=== PATIENT | male | born 1965 | race Caucasian/White ===

== ENCOUNTER 2017-07-02 00:37 | Observation (INO) ==
--- NOTE | 2017-07-02 00:54 | Emergency Department Note ---
Disposition Clinical Impression: TIA (transient ischemic attack) Disposition: Admitted As Inpatient Condition: Fair General Adult HPI - General Chief complaint: ED General Medical Stated complaint: Left Leg went numb Time Seen by Provider: 07/02/17 00:51 Source: patient Limitations: no limitations - History of Present Illness Pain Scale: 0 - Related Data Home Medications Medication Instructions Recorded Confirmed BuPROPion XL (24 HR) [Wellbutrin 300 mg PO QAM 04/16/15 07/01/16 Xl] Citalopram [CeleXA] 20 mg PO DAILY 04/16/15 07/01/16 Colchicine [Colcrys] 0.6 mg PO DAILY 04/16/15 07/01/16 Divalproex (24 HR) [Depakote ER 1,500 mg PO HS 04/16/15 07/01/16 (24 HR)] Gabapentin [Neurontin] 300 mg PO TID 04/16/15 07/01/16 Multivitamin/Iron/Folic Acid 1 tab PO DAILY 04/16/15 07/01/16 [Centrum Complete Multivit Tab] Pravastatin Sodium [Pravachol] 40 mg PO DAILY 04/16/15 07/01/16 ALPRAZolam [Xanax 0.5 MG Tablet] 0.5 mg PO TID PRN 07/01/16 07/01/16 Aspirin 81 mg PO DAILY 07/01/16 07/01/16 Carvedilol [Coreg] 25 mg PO BID 07/01/16 07/01/16 Cholecalciferol (Vitamin D3) 2,000 unit PO DAILY 07/01/16 07/01/16 [Vitamin D3] Cyclobenzaprine [Flexeril] 10 mg PO BID PRN 07/01/16 07/01/16 Fluticasone Propionate Nasal 1 spr NS DAILY 07/01/16 07/01/16 [Flonase] Furosemide [Lasix] 20 mg PO DAILY 07/01/16 07/01/16 Gabapentin [Neurontin] 300 mg PO TID 07/01/16 07/01/16 Insulin ASPART [Novolog Flexpen] 4 - 12 unit SQ ACHS 07/01/16 07/01/16 Insulin DETEMIR [Levemir] 35 unit SQ HS 07/01/16 07/01/16 Lisinopril [Zestril] 40 mg PO DAILY 07/01/16 07/01/16 Lurasidone HCl [Latuda] 120 mg PO DAILY 07/01/16 07/01/16 Metformin HCl [Fortamet] 1,000 mg PO BID 07/01/16 07/01/16 Nitroglycerin [Nitrostat] 0.4 mg SL DAILY PRN 07/01/16 07/01/16 Potassium Chloride [Klor-Con 10 meq PO DAILY 07/01/16 07/01/16 Sprinkle] Testosterone Cypionate 200 mg IM Q2W 07/01/16 07/01/16 [Depo-Testosterone] Tramadol HCl [Ultram] 50 mg PO TID PRN 07/01/16 07/01/16 Triamcinolone Acet 0.1% CRM 1 appl TP DAILY PRN 07/01/16 07/01/16 [Kenalog] Previous Rx's Medication Instructions Recorded Albuterol Sulfate [Albuterol 3 - 4 puff IH Q4HR PRN #1 05/23/16 Inhaler] hfa.aer.ad DiphenhydraMINE [Benadryl] 25 mg PO Q6HR PRN #20 capsule 07/19/16 methylPREDNISolone [Medrol] 4 mg PO TAPER #21 tablet 07/19/16 Azithromycin [Zithromax] 1 applic PO DAILY #6 tablet 11/18/16 Meclizine [Antivert] 25 mg PO TID 14 Days tablet 02/04/17 Cephalexin [Keflex] 500 mg PO TID 7 Days capsule 02/19/17 Gentamicin Oint [Garamycin] 1 appl TP QID 10 Days tube 02/19/17 Phenazopyridine HCl [Pyridium] 200 mg PO TIDAC #6 tab 04/11/17 Sulfamethoxazole/Trimeth DS 1 each PO BID #14 tablet 04/11/17 [Bactrim DS] Allergies Allergy/AdvReac Type Severity Reaction Status Date / Time influenza A (H1N1) virus Allergy Unknown Pt has Verified 07/02/17 00:39 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 Allergy Difficulty Verified 07/02/17 00:39 Breathing msg Allergy Difficulty Uncoded 07/02/17 00:39 Swallowing Past Medical History - Past Medical History Medical history: Reports: diabetes, hypertension, other Surgical history: Reports: orthopedic, other Psychiatric history: Reports: anxiety, bipolar, depression, schizophrenia - Social History Smoking Status: Never smoker Smokeless Tobacco Status: No Alcohol use: Reports: none Drug use: Reports: none Physical Exam - General Limitations: no limitations General appearance: alert Course Vital Signs Temperature 97.4 F L 07/02/17 00:39 Pulse Rate 67 07/02/17 00:39 Respiratory Rate 18 07/02/17 00:39 Blood Pressure 173/95 07/02/17 00:39 O2 Sat by Pulse Oximetry 97 07/02/17 00:39 Temperature 97.5 F L 07/02/17 03:42 Pulse Rate 59 07/02/17 03:42 Respiratory Rate 20 07/02/17 03:42 Blood Pressure 174/94 07/02/17 03:42 O2 Sat by Pulse Oximetry 96 07/02/17 03:03 Oxygen Delivery Oxygen Delivery Room Air Medical Decision Making - Lab Data Result diagrams: 07/02/17 03:41 07/02/17 00:57 Lab Results 07/02/17 07/02/17 07/02/17 Range/Units 00:57 00:57 00:57 WBC 11.9 H (4.3-11.1) K/mcL RBC 5.42 (4.19-5.50) M/mcL Hgb 14.8 (12.9-16.9) g/dL Hct 46.5 (37.5-50.1) % MCV 85.8 (83.0-100.0) fL MCH 27.3 L (28.0-33.3) pg MCHC 31.8 (31.6-35.5) g/dL RDW 14.8 H (11.5-14.5) % Plt Count 249 (140-400) K/mcL MPV 11.3 (9.4-12.4) fL Immature Gran % 0.8 (0-4) % Seg Neutrophils % 53.7 % Lymphocytes % 31.6 % Monocytes % 9.3 % Eosinophils % 3.7 % Basophils % 0.9 % Neutrophils # 6.4 (1.6-8.9) K/mcL Lymphocytes # 3.8 (0.6-4.6) K/mcL Monocytes # 1.1 (0.0-1.3) K/mcL Eosinophils # 0.4 (0.0-0.6) K/mcL Basophils # 0.1 (0.0-0.2) K/mcL PT 10.9 (9.4-12.1) Seconds INR 1.0 APTT 31.5 (26.0-36.0) Seconds Sodium 139 (136-145) mEq/L Potassium 4.2 (3.5-4.5) mEq/L Chloride 106 (98-109) mEq/L Carbon Dioxide 22 (19-29) mEq/L BUN 19 (8-26) mg/dL Creatinine 1.25 (0.72-1.25) mg/dL Est GFR ( Amer) > 60 (> 60) Est GFR (Non-Af Amer) > 60 (> 60) BUN/Creatinine Ratio 15 (6-26) Glucose 80 (70-99) mg/dL Calculated Osmolality 289 (280-300) Calcium 8.9 (8.6-10.8) mg/dL Troponin I (0-0.03) ng/mL 07/02/17 Range/Units 00:57 WBC (4.3-11.1) K/mcL RBC (4.19-5.50) M/mcL Hgb (12.9-16.9) g/dL Hct (37.5-50.1) % MCV (83.0-100.0) fL MCH (28.0-33.3) pg MCHC (31.6-35.5) g/dL RDW (11.5-14.5) % Plt Count (140-400) K/mcL MPV (9.4-12.4) fL Immature Gran % (0-4) % Seg Neutrophils % % Lymphocytes % % Monocytes % % Eosinophils % % Basophils % % Neutrophils # (1.6-8.9) K/mcL Lymphocytes # (0.6-4.6) K/mcL Monocytes # (0.0-1.3) K/mcL Eosinophils # (0.0-0.6) K/mcL Basophils # (0.0-0.2) K/mcL PT (9.4-12.1) Seconds INR APTT (26.0-36.0) Seconds Sodium (136-145) mEq/L Potassium (3.5-4.5) mEq/L Chloride (98-109) mEq/L Carbon Dioxide (19-29) mEq/L BUN (8-26) mg/dL Creatinine (0.72-1.25) mg/dL Est GFR ( Amer) (> 60) Est GFR (Non-Af Amer) (> 60) BUN/Creatinine Ratio (6-26) Glucose (70-99) mg/dL Calculated Osmolality (280-300) Calcium (8.6-10.8) mg/dL Troponin I 0.01 (0-0.03) ng/mL Attestation Statement - Attestation Attestation: I examined this patient and my medical decision-making was reviewed with the Resident Physician. I agree with the documented findings, disposition and treatment plan as described except to the extent set forth below. [id number] time provided Patient states his symptoms started one hour ago. 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 He also states he had some tingling of his tongue and his significant other thought his speech was slightly slurred. He appears in no acute distress at the time of my exam
[2017-07-02 01:16] LABS: Basophils # 0.1 K/mcL (0.0-0.2); Basophils % 0.9 %; Eosinophils # 0.4 K/mcL (0.0-0.6); Eosinophils % 3.7 %; Hematocrit 46.5 % (37.5-50.1); Hemoglobin 14.8 g/dL (12.9-16.9); Immature Granulocytes % 0.8 % (0-4); Lymphocytes # 3.8 K/mcL (0.6-4.6); Lymphocytes % 31.6 %; Mean Corpuscular HGB Conc 31.8 g/dL (31.6-35.5); Mean Corpuscular Hemoglobin 27.3 pg (28.0-33.3); Mean Corpuscular Volume 85.8 fL (83.0-100.0); Mean Platelet Volume 11.3 fL (9.4-12.4); Monocytes # 1.1 K/mcL (0.0-1.3); Monocytes % 9.3 %; Neutrophils # 6.4 K/mcL (1.6-8.9); Platelet Count 249 K/mcL (140-400); Red Blood Count 5.42 M/mcL (4.19-5.50); Red Cell Distribution Width 14.8 % (11.5-14.5); Segmented Neutrophils % 53.7 %
[2017-07-02 01:25] LABS: Prothrombin Time 10.9 Seconds (9.4-12.1)
--- NOTE | 2017-07-02 01:25 | Emergency Department Note ---
Disposition Clinical Impression: TIA (transient ischemic attack) Qualifiers: Transient cerebral ischemia type: unspecified Qualified Code(s): G45.9 - Transient cerebral ischemic attack, unspecified Disposition: Admitted As Inpatient Condition: Fair Referrals: Crystal Noonan CNP [Primary Care Provider] - Forms: ED Satisfaction Letter, Work/School Release Time of Disposition: 02:15 Neuro HPI - General Chief Complaint: ED General Medical Stated Complaint: Left Leg went numb Time Seen by Provider: 07/02/17 00:51 Source: patient Limitations: no limitations Nursing Notes Reviewed: Yes Vital Signs Reviewed: Yes - History of Present Illness HPI Narrative: Patient is a 52-year-old male who presents to [facility] ED with a chief complaint of left lower extremity numbness. Stated his symptoms started approximately around midnight approximately 1 hour prior to arrival. 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 The numbness is purely below the left knee. also states she noted some slurred speech and patient states he also had some tingling of his tongue. States his blood sugar was around 90 so he ate [address] in. Upon repeat, his glucose was also 90 here. Onset of Symptoms Date: 07/02/17 Onset of Symptoms Time: 00:00 Symptom Onset Unknown: No Timing confirmed by: spouse Location: speech, left leg History of same: No Severity: moderate Quality: numbness Symptoms Improving: Yes Improves with: none Worsens with: none Context: sudden onset On Anticoagulants: No Associated symptoms: Denies: chest pain, cough, fever/chills, shortness of breath, weakness Treatments Prior to Arrival: none - Related Data Home Medications: Home Medications Medication Instructions Recorded Confirmed BuPROPion XL (24 HR) [Wellbutrin 300 mg PO QAM 04/16/15 07/01/16 Xl] Citalopram [CeleXA] 20 mg PO DAILY 04/16/15 07/01/16 Colchicine [Colcrys] 0.6 mg PO DAILY 04/16/15 07/01/16 Divalproex (24 HR) [Depakote ER 1,500 mg PO HS 04/16/15 07/01/16 (24 HR)] Gabapentin [Neurontin] 300 mg PO TID 04/16/15 07/01/16 Multivitamin/Iron/Folic Acid 1 tab PO DAILY 04/16/15 07/01/16 [Centrum Complete Multivit Tab] Pravastatin Sodium [Pravachol] 40 mg PO DAILY 04/16/15 07/01/16 ALPRAZolam [Xanax 0.5 MG Tablet] 0.5 mg PO TID PRN 07/01/16 07/01/16 Aspirin 81 mg PO DAILY 07/01/16 07/01/16 Carvedilol [Coreg] 25 mg PO BID 07/01/16 07/01/16 Cholecalciferol (Vitamin D3) 2,000 unit PO DAILY 07/01/16 07/01/16 [Vitamin D3] Cyclobenzaprine [Flexeril] 10 mg PO BID PRN 07/01/16 07/01/16 Fluticasone Propionate Nasal 1 spr NS DAILY 07/01/16 07/01/16 [Flonase] Furosemide [Lasix] 20 mg PO DAILY 07/01/16 07/01/16 Gabapentin [Neurontin] 300 mg PO TID 07/01/16 07/01/16 Insulin ASPART [Novolog Flexpen] 4 - 12 unit SQ ACHS 07/01/16 07/01/16 Insulin DETEMIR [Levemir] 35 unit SQ HS 07/01/16 07/01/16 Lisinopril [Zestril] 40 mg PO DAILY 07/01/16 07/01/16 Lurasidone HCl [Latuda] 120 mg PO DAILY 07/01/16 07/01/16 Metformin HCl [Fortamet] 1,000 mg PO BID 07/01/16 07/01/16 Nitroglycerin [Nitrostat] 0.4 mg SL DAILY PRN 07/01/16 07/01/16 Potassium Chloride [Klor-Con 10 meq PO DAILY 07/01/16 07/01/16 Sprinkle] Testosterone Cypionate 200 mg IM Q2W 07/01/16 07/01/16 [Depo-Testosterone] Tramadol HCl [Ultram] 50 mg PO TID PRN 07/01/16 07/01/16 Triamcinolone Acet 0.1% CRM 1 appl TP DAILY PRN 07/01/16 07/01/16 [Kenalog] Previous Rx's Medication Instructions Recorded Albuterol Sulfate [Albuterol 3 - 4 puff IH Q4HR PRN #1 05/23/16 Inhaler] hfa.aer.ad DiphenhydraMINE [Benadryl] 25 mg PO Q6HR PRN #20 capsule 07/19/16 methylPREDNISolone [Medrol] 4 mg PO TAPER #21 tablet 07/19/16 Azithromycin [Zithromax] 1 applic PO DAILY #6 tablet 11/18/16 Meclizine [Antivert] 25 mg PO TID 14 Days tablet 02/04/17 Cephalexin [Keflex] 500 mg PO TID 7 Days capsule 02/19/17 Gentamicin Oint [Garamycin] 1 appl TP QID 10 Days tube 02/19/17 Phenazopyridine HCl [Pyridium] 200 mg PO TIDAC #6 tab 04/11/17 Sulfamethoxazole/Trimeth DS 1 each PO BID #14 tablet 04/11/17 [Bactrim DS] Allergies/Adverse Reactions: Allergies Allergy/AdvReac Type Severity Reaction Status Date / Time influenza A (H1N1) virus Allergy Unknown Pt has Verified 07/02/17 00:39 vaccine m-[place]-split 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 Past Medical History - Past Medical History Attestation: Yes The following information was validated with the patient. Source: patient Medical history: Reports: diabetes, hypertension, other Surgical history: Reports: orthopedic, other Psychiatric history: Reports: anxiety, bipolar, depression, schizophrenia - Social History Smoking Status: Never smoker Smokeless Tobacco Status: No Alcohol use: Reports: none Drug use: Reports: none Physical Exam CONSTITUTIONAL: Alert and oriented X3, well-nourished, well appearing, in no apparent distress HEAD: Normocephalic; atraumatic. EYES: EOMI, no scleral icterus. NOSE: The nose is normal in appearance without rhinorrhea RESP: Normal chest excursion with respiration; breath sounds clear and equal bilaterally; no wheezes, rhonchi, or rales CARD: Regular rhythm, without murmurs, rub or gallop ABD: Non-distended; non-tender, soft,without rigidity, rebound or guarding SKIN: Normal for age and race; warm and dry; no apparent lesions NEUROLOGICAL: Patient is alert and oriented times three. Cranial nerves III- XII are intact. motor functions are intact. Strength is 5/5 for flexion and extension in all 4 extremities. Patellar DTRS are equal and intact. Finger to nose testing is equal and normal bilaterally. Decreased sensation below the left lower extremity knee - General Limitations: no limitations General appearance: alert Course Course Narrative: Patient seen and examined. Acute neuro symptoms that started an hour ago including left lower extremity numbness, tingling of the tongue and slurred speech. Stroke alert was activated. NIH score [address] of the head was negative for any acute abnormalities. I discussed with [facility] neurologists Dr. Dorman who states patient can come in for TIA workup. - Reevaluation(s) Reevaluation #1: Lab work appears unremarkable. We will admit for TIA workup. Discussed with hospitalist Dr. Vargas who has accepted patient for admission. Time: 02:15 Vital Signs Temperature 97.4 F L 07/02/17 00:39 Pulse Rate 67 07/02/17 00:39 Respiratory Rate 18 07/02/17 00:39 Blood Pressure 173/95 07/02/17 00:39 O2 Sat by Pulse Oximetry 97 07/02/17 00:39 Temperature 97.4 F L 07/02/17 00:39 Pulse Rate 60 07/02/17 01:52 Respiratory Rate 20 07/02/17 01:52 Blood Pressure 160/84 07/02/17 01:52 O2 Sat by Pulse Oximetry 92 07/02/17 01:52 Oxygen Delivery Oxygen Delivery Room Air Neuro Symptoms/Deficit - Medical Records Medical records reviewed: Yes I reviewed the patient's medical records. - Lab Data Lab results reviewed: Yes I reviewed the patient's lab results. Result diagrams: 07/02/17 00:57 07/02/17 00:57 Lab Results 07/02/17 07/02/17 07/02/17 Range/Units 00:57 00:57 00:57 WBC 11.9 H (4.3-11.1) K/mcL RBC 5.42 (4.19-5.50) M/mcL Hgb 14.8 (12.9-16.9) g/dL Hct 46.5 (37.5-50.1) % MCV 85.8 (83.0-100.0) fL MCH 27.3 L (28.0-33.3) pg MCHC 31.8 (31.6-35.5) g/dL RDW 14.8 H (11.5-14.5) % Plt Count 249 (140-400) K/mcL MPV 11.3 (9.4-12.4) fL Immature Gran % 0.8 (0-4) % Seg Neutrophils % 53.7 % Lymphocytes % 31.6 % Monocytes % 9.3 % Eosinophils % 3.7 % Basophils % 0.9 % Neutrophils # 6.4 (1.6-8.9) K/mcL Lymphocytes # 3.8 (0.6-4.6) K/mcL Monocytes # 1.1 (0.0-1.3) K/mcL Eosinophils # 0.4 (0.0-0.6) K/mcL Basophils # 0.1 (0.0-0.2) K/mcL PT 10.9 (9.4-12.1) Seconds INR 1.0 APTT 31.5 (26.0-36.0) Seconds Sodium 139 (136-145) mEq/L Potassium 4.2 (3.5-4.5) mEq/L Chloride 106 (98-109) mEq/L Carbon Dioxide 22 (19-29) mEq/L BUN 19 (8-26) mg/dL Creatinine 1.25 (0.72-1.25) mg/dL Est GFR ( Amer) > 60 (> 60) Est GFR (Non-Af Amer) > 60 (> 60) BUN/Creatinine Ratio 15 (6-26) Glucose 80 (70-99) mg/dL Calculated Osmolality 289 (280-300) Calcium 8.9 (8.6-10.8) mg/dL Troponin I (0-0.03) ng/mL 07/02/17 Range/Units 00:57 WBC (4.3-11.1) K/mcL RBC (4.19-5.50) M/mcL Hgb (12.9-16.9) g/dL Hct (37.5-50.1) % MCV (83.0-100.0) fL MCH (28.0-33.3) pg MCHC (31.6-35.5) g/dL RDW (11.5-14.5) % Plt Count (140-400) K/mcL MPV (9.4-12.4) fL Immature Gran % (0-4) % Seg Neutrophils % % Lymphocytes % % Monocytes % % Eosinophils % % Basophils % % Neutrophils # (1.6-8.9) K/mcL Lymphocytes # (0.6-4.6) K/mcL Monocytes # (0.0-1.3) K/mcL Eosinophils # (0.0-0.6) K/mcL Basophils # (0.0-0.2) K/mcL PT (9.4-12.1) Seconds INR APTT (26.0-36.0) Seconds Sodium (136-145) mEq/L Potassium (3.5-4.5) mEq/L Chloride (98-109) mEq/L Carbon Dioxide (19-29) mEq/L BUN (8-26) mg/dL Creatinine (0.72-1.25) mg/dL Est GFR ( Amer) (> 60) Est GFR (Non-Af Amer) (> 60) BUN/Creatinine Ratio (6-26) Glucose (70-99) mg/dL Calculated Osmolality (280-300) Calcium (8.6-10.8) mg/dL Troponin I 0.01 (0-0.03) ng/mL - Radiology Data Radiology results reviewed: Yes I reviewed the patient's radiology results. Head CT 07/02/17 01:10 IMPRESSION: 1. No acute intracranial abnormality. 2. Cerebral and cerebellar parenchymal volume loss with chronic microvascular white matter ischemic disease. These results were discussed with Dr. pinky Jacob and at 0122 hours on 07/02/2017. D/ / Romeo Mcintosh MD / Romeo Mcintosh MD Interpreting Provider: Romeo Mcintosh MD - EKG Data EKG attestation: Yes I reviewed and interpreted this EKG. EKG results narrative: EKG done at 145 shows normal sinus rhythm with a rate of 67 beats per minute. No acute ST elevation or depression. Normal axis. Unchanged from prior EKG done 03/20/2017. NIH Stroke Scale - Level of Consciousness LOC: Alert - LOC Questions LOC Questions: Answers both correctly - LOC Commands LOC Commands: Performs both correctly - Best Gaze Best Gaze: Normal - Visual Visual: No visual loss - Facial Palsy Facial Palsy: Normal - Motor Arms Motor Arm-Left: No drift for 10 seconds Motor Arm-Right: No drift for 10 seconds - Motor Legs Motor Leg-Left: No drift for 5 seconds Motor Leg-Right: No drift for 5 seconds - Limb Ataxia Limb Ataxia: Absent of affected limb too weak to perform exam - Sensory Sensory: Mild to moderate loss, "not as sharp" - Best Language Best Language: No aphasia - Dysarthria Dysarthria: Normal - Extinction and Inattention Extinction and Inattention: Normal - NIHSS Total Score NIHSS Total Score: 1 TPA Checklist - LKW: 3-4.5 hrs Add. Warnings/Precautions Patient/family understanding: The patient/family members have been counseled and understood the risk, benefit , and alternatives of treatment.
[2017-07-02 01:26] LABS: BUN/Creatinine Ratio 15 (6-26); Blood Urea Nitrogen 19 mg/dL (8-26); Calcium 8.9 mg/dL (8.6-10.8); Carbon Dioxide 22 mEq/L (19-29); Chloride 106 mEq/L (98-109); Glucose 80 mg/dL (70-99); Osmolality,Calculated 289 (280-300); Potassium 4.2 mEq/L (3.5-4.5); Sodium 139 mEq/L (136-145); eGFR For African Americans > 60 (> 60); eGFR For Non-African Americans > 60 (> 60)
[2017-07-02 01:27] LABS: Activated Partial Thrombo Time 31.5 Seconds (26.0-36.0)
--- NOTE | 2017-07-02 03:17 | Internal Med History&Physical ---
Date of Encounter: 07/02/17 Time of Encounter: 03:00 Assessment and Plan (1) Left leg paresthesias Current visit: Yes Status: Acute -No focal neurological deficits on exam. -CT of the head showed no acute findings. -Will order MRI/MRA of brain/neck to complete workup. (2) Diabetes mellitus type 2 with complications Current visit: No Status: Chronic -Controlled; continue home medications. Qualifiers: Diabetes mellitus longterm insulin use: with middle or intermediate school principal use Qualified Code( s): E11.8 - Type 2 diabetes mellitus with unspecified complications; Z79.4 - petroleum terminal plant operator (current) use of insulin; Z79.4 - petroleum terminal plant operator (current) use of insulin; Z79.4 - correction (current) use of insulin; Z79.4 - correction (current) use of insulin (3) Hypertension Current visit: No Status: Acute -Controlled; continue home medications. Qualifiers: Hypertension type: essential hypertension Qualified Code(s): I10 - Essential (primary) hypertension (4) Hyperlipidemia Current visit: Yes Status: Acute -Continue statin. Qualifiers: Hyperlipidemia type: unspecified Qualified Code(s): E78.5 - Hyperlipidemia , unspecified (5) Bipolar disorder Current visit: No Status: Chronic -Continue home medications. Qualifiers: Most recent bipolar episode type: most recent episode unspecified type Qualified Code(s): F31.70 - Bipolar disorder, currently in remission, most recent episode unspecified (6) DVT prophylaxis Current visit: Yes Status: Acute -Subcutaneous heparin. 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 Patient reports while watching TV the evening of admission, he suddenly experienced left lower extremity altered sensation. In addition, patient also reports altered sensation in the tip of his tongue/lips and significant other reported slurred speech which have all resolved. Patient was concerned and asked significant other to bring him into the ER for further evaluation. In the ER, CT of the head showed no acute abnormalities. Patient will be admitted to medical floor for observation for monitoring and to rule out TIA. Past Med Surg Social Fam HX - Past Medical History Medical history: diabetes, hypertension, other Psychiatric history: anxiety, bipolar, depression, schizophrenia - Past Surgical History Surgical History: orthopedic, other - Social History Smoking Status: Never smoker Smokeless Tobacco Status: No Alcohol use: none Drug use: none - Family History Mother Hx Family Endocrine Disorder: Yes (diabetes mellitus) Internal Medicine - H&P: Meds BuPROPion XL (24 HR) [Wellbutrin Xl] 300 mg PO QAM 04/16/15 [History] Citalopram [CeleXA] 20 mg PO DAILY 04/16/15 [History] Colchicine [Colcrys] 0.6 mg PO DAILY 04/16/15 [History] Divalproex (24 HR) [Depakote ER (24 HR)] 1,500 mg PO HS 04/16/15 [History] Gabapentin [Neurontin] 300 mg PO TID 04/16/15 [History] Multivitamin/Iron/Folic Acid [Centrum Complete Multivit Tab] 1 tab PO DAILY [History] Pravastatin Sodium [Pravachol] 40 mg PO DAILY 04/16/15 [History] Albuterol Sulfate [Albuterol Inhaler] 3 - 4 puff IH Q4HR PRN #1 hfa.aer.[id number] 05/23 [Rx] ALPRAZolam [Xanax 0.5 MG Tablet] 0.5 mg PO TID PRN 07/01/16 [History] Aspirin 81 mg PO DAILY 07/01/16 [History] Carvedilol [Coreg] 25 mg PO BID 07/01/16 [History] Cholecalciferol (Vitamin D3) [Vitamin D3] 2,000 unit PO DAILY 07/01/16 [History] Cyclobenzaprine [Flexeril] 10 mg PO BID PRN 07/01/16 [History] Fluticasone Propionate Nasal [Flonase] 1 spr NS DAILY 07/01/16 [History] Furosemide [Lasix] 20 mg PO DAILY 07/01/16 [History] Gabapentin [Neurontin] 300 mg PO TID 07/01/16 [History] Insulin ASPART [Novolog Flexpen] 4 - 12 unit SQ ACHS 07/01/16 [History] Insulin DETEMIR [Levemir] 35 unit SQ HS 07/01/16 [History] Lisinopril [Zestril] 40 mg PO DAILY 07/01/16 [History] Lurasidone HCl [Latuda] 120 mg PO DAILY 07/01/16 [History] Metformin HCl [Fortamet] 1,000 mg PO BID 07/01/16 [History] Nitroglycerin [Nitrostat] 0.4 mg SL DAILY PRN 07/01/16 [History] Potassium Chloride [Klor-Con Sprinkle] 10 meq PO DAILY 07/01/16 [History] Testosterone Cypionate [Depo-Testosterone] 200 mg IM Q2W 07/01/16 [History] Tramadol HCl [Ultram] 50 mg PO TID PRN 07/01/16 [History] Triamcinolone Acet 0.1% CRM [Kenalog] 1 appl TP DAILY PRN 07/01/16 [History] DiphenhydraMINE [Benadryl] 25 mg PO Q6HR PRN #20 capsule 07/19/16 [Rx] methylPREDNISolone [Medrol] 4 mg PO TAPER #21 tablet 07/19/16 [Rx] Azithromycin [Zithromax] 1 applic PO DAILY #6 tablet 11/18/16 [Rx] Meclizine [Antivert] 25 mg PO TID 14 Days tablet 02/04/17 [Rx] Cephalexin [Keflex] 500 mg PO TID 7 Days capsule 02/19/17 [Rx] Gentamicin Oint [Garamycin] 1 appl TP QID 10 Days tube 02/19/17 [Rx] Phenazopyridine HCl [Pyridium] 200 mg PO TIDAC #6 tab 04/11/17 [Rx] Sulfamethoxazole/Trimeth DS [Bactrim DS] 1 each PO BID #14 tablet 04/11/17 [Rx] 3 Allergy/AdvReac Type Severity Reaction Status Date / Time influenza A (H1N1) virus Allergy Unknown Pt has Verified 07/02/17 00:39 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 - Constitutional Vitals: Temp Pulse Resp BP Pulse Ox 97.5 F L 59 20 174/94 96 07/02/17 03:03 07/02/17 03:03 07/02/17 03:03 07/02/17 03:03 07/02/17 03:03 General appearance: Present: A&O X 3 - Head Head exam: Present: normocephalic - Eye Eye exam: Present: EOMI, normal appearance, PERRL. Absent: nystagmus - ENT ENT exam: Present: mucous membranes moist - Respiratory Respiratory exam: Present: CTAB. Absent: accessory muscle use, rales, rhonchi, wheezes - Cardiovascular Cardiovascular exam: Present: RRR, +S1, +S2. Absent: diastolic murmur, gallop, rubs, systolic murmur - GI/Abdominal GI/Abdominal exam: Present: normal bowel sounds, soft, no peritoneal signs. Absent: distended, tenderness - Neurological Exam Neurological exam: Present: alert, CN II-XII intact, normal gait, oriented X3, strengths equal and symetr throughout. Absent: motor sensory deficit, no focal deficits, facial droop, speech deficit - Psychiatric Psychiatric exam: Present: normal mood - Skin Skin exam: Present: warm Internal Med - H&P Results - Labs CBC & Chem 7: 07/02/17 00:57 07/02/17 00:57
[2017-07-02] MEDS ORDERED: Naloxone 0.4 MG/ML INJ IVP PRN (03:23)
[2017-07-02 04:13] LABS: Basophils # 0.1 K/mcL (0.0-0.2); Basophils % 0.6 %; Eosinophils # 0.5 K/mcL (0.0-0.6); Eosinophils % 4.1 %; Hematocrit 43.4 % (37.5-50.1); Hemoglobin 13.6 g/dL (12.9-16.9); Immature Granulocytes % 0.9 % (0-4); Lymphocytes # 3.3 K/mcL (0.6-4.6); Lymphocytes % 29.4 %; Mean Corpuscular HGB Conc 31.3 g/dL (31.6-35.5); Mean Corpuscular Hemoglobin 26.9 pg (28.0-33.3); Mean Corpuscular Volume 85.9 fL (83.0-100.0); Mean Platelet Volume 11.2 fL (9.4-12.4); Monocytes # 1.1 K/mcL (0.0-1.3); Monocytes % 9.5 %; Neutrophils # 6.2 K/mcL (1.6-8.9); Platelet Count 249 K/mcL (140-400); Red Blood Count 5.05 M/mcL (4.19-5.50); Red Cell Distribution Width 14.9 % (11.5-14.5); Segmented Neutrophils % 55.5 %
[2017-07-02 04:39] LABS: BUN/Creatinine Ratio 14 (6-26); Blood Urea Nitrogen 16 mg/dL (8-26); Calcium 9.1 mg/dL (8.6-10.8); Carbon Dioxide 26 mEq/L (19-29); Chloride 105 mEq/L (98-109); Chol/HDL Ratio 3.5 (0-4.9); Cholesterol 139 mg/dL (< 200); Glucose 52 mg/dL (70-99); HDL Cholesterol 40 mg/dL (40-59); LDL Cholesterol,Calculated 81 mg/dL (0-99); Osmolality,Calculated 285 (280-300); Potassium 3.9 mEq/L (3.5-4.5); Sodium 138 mEq/L (136-145); Triglycerides 89 mg/dL (< 150); eGFR For African Americans > 60 (> 60); eGFR For Non-African Americans > 60 (> 60)
[2017-07-02] MEDS ORDERED: Triamcinolone Acet 0.1% CRM 1 APPL GRAM TP PRN (12:20)
[2017-07-02] MEDS ORDERED: [UNRECOGNIZED DRUG - OTHER] PO PRN (12:20)
[2017-07-02] MEDS ORDERED: ACETAMINOPHEN PO PRN (12:20)
[2017-07-02] MEDS ORDERED: TRAMADOL HCL PO PRN (12:20)
[2017-07-02] MEDS ORDERED: NON-FORMULARY MEDICATION 1 EACH EACH (Testosterone Cypionate [Depo-Testosterone] 200 MG) IM SCH (12:30)
[2017-07-02] MEDS ORDERED: BuPROPion XL (24 HR) 150 MG TABLET PO SCH (12:30)
[2017-07-02] MEDS ORDERED: Aspirin 81 MG TAB.CHEW PO SCH (12:30)
[2017-07-02] MEDS ORDERED: Cholecalciferol (D-3) 1,000 UNIT TABLET PO SCH (12:30)
--- NOTE | 2017-07-02 13:38 | Discharge Summary ---
Date of Encounter: 07/02/17 Time of Encounter: 08:25 - Discharge Diagnosis (1) Left leg paresthesias Priority: Primary Status: Acute Comments: She reports normal, baseline paresthesias to bilateral lower extremities. He reports that last night while he was watching TV, his left leg became worse than normal. He also reported altered sensation to the tip of his tongue and to his lips, at bedside reports that pt had slurred speech. All symptoms resolved by the time he reached the ER. During exam this a.m., he is neurologically intact with no focal deficits. He does report remaining altered sensation to RLE with light touch, states that it has all resolved to face and right arm. Head CT was negative for any acute intracranial abnormality, there was noted cerebral and cerebellar volume loss with chronic microvascular white matter ischemic disease. MRA of head and neck and MRI of the brain were unremarkable, mild small vessel ischemic changes bilaterally with no acute process, mass or hemorrhage noted. Unclear etiology of left leg paresthesia. Patient with chronic neuropathy from uncontrolled diabetes and [employer] Gregory as a child. Could be an exacerbation of neuropathy versus spinal etiology. Patient states that he and his built a set of stairs yesterday, he was bending over for long periods of time as well as lifting heavy objects repeatedly throughout the day. Patient should continue his normal home medications and follow up with primary care if symptoms do not improve. Patient may need MRI of lumbar spine. (2) Diabetes mellitus type 2 with complications Priority: Secondary Status: Chronic Comments: A1c was 5.5% in May,. Well controlled. Continue home medications. Qualifiers: Diabetes mellitus terminal manager insulin use: with detention use Qualified Code( s): E11.8 - Type 2 diabetes mellitus with unspecified complications; Z79.4 - director long term care (current) use of insulin; Z79.4 - director long term care (current) use of insulin; Z79.4 - nursing home (current) use of insulin; Z79.4 - nursing home (current) use of insulin (3) Bipolar disorder Priority: Secondary Status: Chronic Comments: Continue home medications. Qualifiers: Most recent bipolar episode type: most recent episode unspecified type Qualified Code(s): F31.70 - Bipolar disorder, currently in remission, most recent episode unspecified (4) Hypertension Priority: Secondary Status: Chronic Comments: Pt had episode of HTN while inpatient, however, his home medications were not continued. Pt received dose of Hydralazine IV and will continue home medications. Qualifiers: Hypertension type: essential hypertension Qualified Code(s): I10 - Essential (primary) hypertension (5) Hyperlipidemia Priority: Secondary Status: Chronic Comments: Continue statin. Discussed discontinuing with PCP. Qualifiers: Hyperlipidemia type: unspecified Qualified Code(s): E78.5 - Hyperlipidemia , unspecified (6) DVT prophylaxis Priority: Primary Status: Acute Comments: Heparin SQ. PT same day admission. - Discharge Medications Home Medications: BuPROPion XL (24 HR) [Wellbutrin Xl] 300 mg PO QAM 04/16/15 [History] Citalopram [CeleXA] 20 mg PO DAILY 04/16/15 [History] Divalproex (24 HR) [Depakote ER (24 HR)] 1,500 mg PO HS 04/16/15 [History] Gabapentin [Neurontin] 300 mg PO TID 04/16/15 [History] Multivitamin/Iron/Folic Acid [Centrum Complete Multivit Tab] 1 tab PO DAILY [History] Pravastatin Sodium [Pravachol] 40 mg PO DAILY 04/16/15 [History] ALPRAZolam [Xanax 0.5 MG Tablet] 0.5 mg PO TID PRN 07/01/16 [History] Aspirin 81 mg PO DAILY 07/01/16 [History] Carvedilol [Coreg] 12.5 mg PO BID 07/01/16 [History] Cholecalciferol (Vitamin D3) [Vitamin D3] 2,000 unit PO DAILY 07/01/16 [History] Fluticasone Propionate Nasal [Flonase] 50 mcg NS DAILY 07/01/16 [History] Furosemide [Lasix] 20 mg PO DAILY 07/01/16 [History] Insulin ASPART [Novolog Flexpen] 4 - 12 unit SQ ACHS 07/01/16 [History] Insulin DETEMIR [Levemir] 34 unit SQ BID 07/01/16 [History] Lisinopril [Zestril] 40 mg PO DAILY 07/01/16 [History] Lurasidone HCl [Latuda] 120 mg PO DAILY 07/01/16 [History] Metformin HCl [Fortamet] 1,000 mg PO BID 07/01/16 [History] Nitroglycerin [Nitrostat] 0.4 mg SL DAILY PRN 07/01/16 [History] Potassium Chloride [Klor-Con Sprinkle] 10 meq PO DAILY 07/01/16 [History] Testosterone Cypionate [Depo-Testosterone] 200 mg IM Q2W 07/01/16 [History] Triamcinolone Acet 0.1% CRM [Kenalog] 1 appl TP DAILY PRN 07/01/16 [History] Albuterol Sulfate [Albuterol Inhaler] 1 - 2 puff IH Q4HR PRN 07/02/17 [History] Allopurinol [Zyloprim 100 MG] 200 mg PO DAILY 07/02/17 [History] Tramadol HCl/Acetaminophen [Ultracet Tablet] 1 tab PO Q6H PRN 07/02/17 [History] Allergies/Adverse Reactions: 3 Allergy/AdvReac Type Severity Reaction Status Date / Time influenza A (H1N1) virus Allergy Unknown Pt has Verified 07/02/17 00:39 vaccine m-destinee-split 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 peanut Allergy Difficulty Verified 07/02/17 00:39 Breathing msg Allergy Difficulty Uncoded 07/02/17 00:39 Swallowing Procedures/tests Complete & Pending: Procedures Performed prior 72 hours Category Date Time Status MR angio head wo con [MR] Stat MRI 07/02/17 07:24 Completed MR angio neck wo/w con [MR] Stat MRI 07/02/17 07:25 Completed MR head/brain wo con [MR] Stat MRI 07/02/17 07:25 Completed Date of admission: 07/02/17 02:25 Primary care physician: Crysatl Noonan CNP Discharging clinician: Katie Aguilar Anticipated date of discharge: 07/02/17 - Patient Status Disposition: Home, Self-Care Condition: Good Functional capacity at discharge: independent ambulation Overall status at discharge: patient is progressing back to baseline - Discharge Instructions Follow Up With: Crystal Noonan CNP [Primary Care Provider] - Additional Instructions: Please follow up with your PCP in the next week to ten days return to your normal diet and activities as tolerated. Resume your normal home medications. Return to the ER as needed for any other problems or concerns. - Diet and Activity Activity: increase activity as tolerated Diet: advance to your usual diet Interval History: Please see assessment and plan for hospital course. Pt is a same day discharge, at least 8 hours between admission and discharge. Hospital course: Mr. Sullivan is a 52 year old male - Time Spent with Patient Total time spent providing and/or coordinating discharge services: Less than 30 minutes - Constitutional Vitals: Temp Pulse Resp BP Pulse Ox 97.8 F 68 16 173/104 95 07/02/17 11:19 07/02/17 11:19 07/02/17 11:19 07/02/17 11:19 07/02/17 11:19 General appearance: Present: cooperative, A&O X 3, morbidly obese, pleasant, answers questions appropriately - Head Head exam: Present: atraumatic, normal inspection, normocephalic - Eye Eye exam: Present: normal appearance, conjuntiva pink, sclera anicteric - Neck Neck exam general surgery: Present: supple, trachea midline. Absent: lymphadenopathy - Respiratory Respiratory exam: Present: CTAB. Absent: accessory muscle use, chest wall tenderness, decreased breath sounds, rales, respiratory distress, rhonchi, wheezes - Cardiovascular Cardiovascular exam: Present: RRR, +S1, +S2. Absent: diastolic murmur, gallop, rubs, systolic murmur - GI/Abdominal GI/Abdominal exam: Present: normal bowel sounds, soft, no peritoneal signs. Absent: distended, hepatomegaly, tenderness - Extremities Exam Extremities exam: Present: normal capillary refill, normal inspection, warm, radial pulses palpable and symmetrical. Absent: calf tenderness, cyanotic, pedal edema - Neurological Exam Neurological exam: Present: alert, oriented X3, no focal deficits. Absent: facial droop, speech deficit - Skin Skin exam: Present: dry, intact, normal color, warm. Absent: rash
[2017-07-02] MEDS ORDERED: Gabapentin 300 MG CAPSULE PO SCH (15:00)
[2017-07-02 15:21] VITALS: BP 162/85
--- NOTE | 2017-07-02 18:12 | Electrocardiograph Report ---
[address] [place], [place] [address] Test Date: 2017-07-02 Pat Name: Phuong Sullivan Department: 104 Room: 3B24 Gender: M Surface Miner: RAFITA : 1965 Requested By: Franky Holley Order Number: [id number] Reading MD: Lobito Raphael MD Measurements Intervals Oracle Rate: 67 P: 74 GA: 188 QRS: -3 QRSD: 96 T: 86 QT: 372 QTc: 388 Interpretive Statements SINUS RHYTHM Electronically Signed On 07-02-2017 18:10:47 EST by Lobito Raphael MD
[2017-07-02] MEDS ORDERED: *HR* Metformin 500 MG TABLET PO SCH (21:00)
[2017-07-02] MEDS ORDERED: Divalproex (24 HR) 500 MG TABLET PO SCH (21:00)
[2017-07-03] MEDS ORDERED: Furosemide 20 MG TABLET PO SCH (09:00)
[2017-07-03] MEDS ORDERED: Fluticasone Propionate Nasal 50 MCG/SPRAY BOTTLE NS SCH (09:00)
[2017-07-03] MEDS ORDERED: Lisinopril 20 MG TABLET PO SCH (09:00)
[2017-07-03] MEDS ORDERED: Multivit/Ca/Min/Fe/FA 1 TAB TABLET PO SCH (09:00)
== END 2017-07-02 15:37 | disposition home or self-care (01) ==
LOC: EMEROO 00:37 → 3BNU 00:37
PROVIDERS: ADMIT Hospitalist; ATTEND Registered Nurse

== ENCOUNTER 2018-01-19 20:05 | Observation (INO) ==
[2018-01-19] MEDS ORDERED: Aspirin 81 MG TAB.CHEW PO ONE (20:35)
--- NOTE | 2018-01-19 20:44 | Emergency Department Note ---
Disposition Clinical Impression: Chest pain Qualifiers: Chest pain type: unspecified Qualified Code(s): R07.9 - Chest pain, unspecified Disposition: Admitted As Inpatient Condition: Fair Referrals: Crystal Noonan CNP [Primary Care Provider] - Forms: ED Satisfaction Letter Time of Disposition: 20:45 Chest Pain HPI - General Chief Complaint: ED Chest Pain Stated Complaint: chest heaviness, shortness of breath, dizzy Time Seen by Provider: 01/19/18 20:32 Source: patient, family Limitations: no limitations Vital Signs Reviewed: Yes Nursing Notes Reviewed: Yes - History of Present Illness HPI Narrative: 52-year-old with multiple risk factors who comes in complaining of intermittent chest heaviness and tightness. The patient states that so that is getting progressively worse. Risk factors include diabetes, hypertension, high cholesterol, family history. I did review his records he had a cardiac catheter in 2015 and had a 50% lesion in the first diagonal, 20% proximal LAD, 20% right coronary artery and 15% circumflex. Pt complaint: chest pain Onset (ago): [employer] Duration: intermittent Onset: during rest Pain Location: substernal, left chest Severity: moderate Severity scale (1-10): 3 Quality: tightness, aching, heaviness Pain Radiation: none Improves with: nothing Worsens with: nothing Associated symptoms: Reports: other (Dizziness and lightheadedness) Treatments prior to arrival chest pain: none - Related Data Home Medications Medication Instructions Recorded Confirmed BuPROPion XL (24 HR) [Wellbutrin 300 mg PO QAM 04/16/15 07/02/17 Xl] Multivitamin/Iron/Folic Acid 1 tab PO DAILY 04/16/15 07/02/17 [Centrum Complete Multivit Tab] Pravastatin Sodium [Pravachol] 40 mg PO DAILY 04/16/15 07/02/17 ALPRAZolam [Xanax 0.5 MG Tablet] 0.5 mg PO TID PRN 07/01/16 07/02/17 Aspirin 81 mg PO DAILY 07/01/16 07/02/17 Carvedilol [Coreg] 12.5 mg PO BID 07/01/16 07/02/17 Cholecalciferol (Vitamin D3) 2,000 unit PO DAILY 07/01/16 07/02/17 [Vitamin D3] Fluticasone Propionate Nasal 50 mcg NS DAILY 07/01/16 07/02/17 [Flonase] Furosemide [Lasix] 20 mg PO DAILY 07/01/16 07/02/17 Insulin ASPART [Novolog Flexpen] 4 - 12 unit SQ ACHS 07/01/16 07/02/17 Lisinopril [Zestril] 40 mg PO DAILY 07/01/16 07/02/17 Lurasidone HCl [Latuda] 120 mg PO DAILY 07/01/16 07/02/17 Metformin HCl [Fortamet] 1,000 mg PO BID 07/01/16 07/02/17 Nitroglycerin [Nitrostat] 0.4 mg SL DAILY PRN 07/01/16 07/02/17 Potassium Chloride [Klor-Con 10 meq PO DAILY 07/01/16 07/02/17 Sprinkle] Testosterone Cypionate 200 mg IM Q2W 07/01/16 07/02/17 [Depo-Testosterone] Triamcinolone Acet 0.1% CRM 1 appl TP DAILY PRN 07/01/16 07/02/17 [Kenalog] Albuterol Sulfate [Albuterol 1 - 2 puff IH Q4HR PRN 07/02/17 07/02/17 Inhaler] Allopurinol [Zyloprim 100 MG] 200 mg PO DAILY 07/02/17 07/02/17 Tramadol HCl/Acetaminophen 1 tab PO Q6H PRN 07/02/17 07/02/17 [Ultracet Tablet] Allergies Allergy/AdvReac Type Severity Reaction Status Date / Time influenza A (H1N1) virus Allergy Unknown Pt has Verified 01/19/18 20:12 vaccine -[place]-split 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 Constitutional: Denies: fever, chills, weakness, weight change Eyes: Denies: eye pain, eye discharge, vision change ENT ED: Denies: ear pain, throat pain, dental pain, hearing loss, epistaxis, congestion, dysphagia Cardiovascular: Reports: chest pain. Denies: palpitations, dyspnea on exertion , edema, syncope Respiratory: Denies: cough, dyspnea, wheezes, hemoptysis, stridor Gastrointestinal: Denies: abdominal pain, nausea, vomiting, diarrhea, constipation, hematemesis, melena, hematochezia Genitourinary: Denies: urgency, dysuria, frequency, hematuria Musculoskeletal: Denies: back pain, neck pain, arthralgia, myalgia Integumentary: Denies: rash, abrasion, lesions Neurological: Reports: other. Denies: headache, weakness, numbness, paresthesias, confusion, abnormal gait, vertigo Psychiatric: Denies: anxiety, depression, suicidal thoughts, homicidal thoughts , auditory hallucinations, visual hallucinations Endocrine: Denies: fatigue Hematological/Lymphatic: Denies: easy bleeding, easy bruising Allergic/Immunologic: Denies: facial swelling, urticaria Chest Pain PMH - Past Medical History Medical history: Reports: diabetes, hypertension, renal disease, other Surgical history: Reports: orthopedic, other Psychiatric history: Reports: anxiety, bipolar, depression, schizophrenia - Social History Smoking Status: Never smoker Alcohol use: Reports: none Drug use: Reports: none Physical Exam - General Limitations: no limitations General appearance: alert, in no apparent distress - Head Head exam: atraumatic, normocephalic, normal inspection - Eye Eye exam: Present: normal appearance, PERRL, EOMI - ENT ENT exam: normal exam, normal oropharynx, mucous membranes moist - Neck Neck exam: Present: normal inspection, full ROM, trachea midline - Chest Chest inspection: Present: normal inspection, symmetric chest wall rise - Respiratory Respiratory exam: Present: normal lung sounds bilaterally - Cardiovascular Cardiovascular exam: Present: regular rate, normal rhythm, normal heart sounds - Abdominal Exam Abdominal exam: Present: soft, Non-Tender. Absent: tenderness, distention, guarding, rebound, rigidity - Extremities Exam Extremities exam: Present: normal inspection, full ROM. Absent: tenderness, pedal edema - Expanded Lower Extremity Exam Gait: observed and normal - Back Exam Back exam: Present: normal inspection, full ROM. Absent: tenderness - Neurological Exam Neurological exam: Present: alert, oriented X3 - Psychiatric Psychiatric exam: Present: normal affect, normal mood - Skin Skin exam: Present: warm, dry, intact, normal color Course - Reevaluation(s) Reevaluation #1: Patient with multiple risk factors affect had a cardiac catheter that showed a 50% first diagonal lesion about 2 years ago. Chest pain is worrisome for cardiac etiology. Patient will be admitted for further evaluation and treatment. Time: 21:32 - Consultations Consultation #1: Discussed with , admit. Time: 21:33 Vital Signs Temperature 98.1 F 01/19/18 20:06 Pulse Rate 66 01/19/18 20:06 Respiratory Rate 20 01/19/18 20:06 Blood Pressure 174/95 01/19/18 20:06 O2 Sat by Pulse Oximetry 97 01/19/18 20:06 Temperature 98.1 F 01/19/18 20:06 Pulse Rate 66 01/19/18 20:06 Respiratory Rate 20 01/19/18 20:06 Blood Pressure 174/95 01/19/18 20:06 O2 Sat by Pulse Oximetry 97 01/19/18 20:06 Oxygen Delivery Oxygen Delivery Room Air Chest Pain - Lab Data Result diagrams: 01/19/18 20:49 01/19/18 20:49 Lab Results 01/19/18 01/19/18 01/19/18 Range/Units 20:49 20:49 20:49 WBC 7.8 (4.3-11.1) K/mcL RBC 4.42 (4.19-5.50) M/mcL Hgb 13.0 (12.9-16.9) g/dL Hct 39.2 (37.5-50.1) % MCV 88.7 (83.0-100.0) fL MCH 29.4 (28.0-33.3) pg MCHC 33.2 (31.6-35.5) g/dL RDW 14.9 H (11.5-14.5) % Plt Count 191 (140-400) K/mcL MPV 11.6 (9.4-12.4) fL Immature Gran % 0.4 (0-4) % Seg Neutrophils % 54.9 % Lymphocytes % 30.4 % Monocytes % 10.5 % Eosinophils % 3.0 % Basophils % 0.8 % Neutrophils # 4.3 (1.6-8.9) K/mcL Lymphocytes # 2.4 (0.6-4.6) K/mcL Monocytes # 0.8 (0.0-1.3) K/mcL Eosinophils # 0.2 (0.0-0.6) K/mcL Basophils # 0.1 (0.0-0.2) K/mcL PT 11.0 (9.4-12.1) Seconds INR 1.0 APTT 36.5 H (26.0-36.0) Seconds Sodium (136-145) mEq/L Potassium (3.5-5.1) mEq/L Chloride (98-107) mEq/L Carbon Dioxide (23-29) mEq/L BUN (6-20) mg/dL Creatinine (0.70-1.30) mg/dL Est GFR ( Amer) (> 60) Est GFR (Non-Af Amer) (> 60) BUN/Creatinine Ratio (6-26) Glucose (70-105) mg/dL Calculated Osmolality (280-300) Calcium (8.6-10.3) mg/dL Troponin I (< 0.04) ng/mL B-Natriuretic Peptide 32 (Less than 100) pg/mL 01/19/18 Range/Units 20:49 WBC (4.3-11.1) K/mcL RBC (4.19-5.50) M/mcL Hgb (12.9-16.9) g/dL Hct (37.5-50.1) % MCV (83.0-100.0) fL MCH (28.0-33.3) pg MCHC (31.6-35.5) g/dL RDW (11.5-14.5) % Plt Count (140-400) K/mcL MPV (9.4-12.4) fL Immature Gran % (0-4) % Seg Neutrophils % % Lymphocytes % % Monocytes % % Eosinophils % % Basophils % % Neutrophils # (1.6-8.9) K/mcL Lymphocytes # (0.6-4.6) K/mcL Monocytes # (0.0-1.3) K/mcL Eosinophils # (0.0-0.6) K/mcL Basophils # (0.0-0.2) K/mcL PT (9.4-12.1) Seconds INR APTT (26.0-36.0) Seconds Sodium 135 L (136-145) mEq/L Potassium 4.2 (3.5-5.1) mEq/L Chloride 104 (98-107) mEq/L Carbon Dioxide 24 (23-29) mEq/L BUN 18 (6-20) mg/dL Creatinine 1.37 H (0.70-1.30) mg/dL Est GFR ( Amer) > 60 (> 60) Est GFR (Non-Af Amer) 54 L (> 60) BUN/Creatinine Ratio 13 (6-26) Glucose 80 (70-105) mg/dL Calculated Osmolality 281 (280-300) Calcium 8.9 (8.6-10.3) mg/dL Troponin I < 0.03 (< 0.04) ng/mL B-Natriuretic Peptide (Less than 100) pg/mL - EKG Data EKG attestation: Yes I reviewed and interpreted this EKG. EKG shows normal: sinus rhythm Rate: normal Rhythm: NSR [place]/QRS: normal When compared to previous EKG there are: no significant changes (10/12/2017) Interpretation: nonspecific ST-T wave changes Heart Score - Score History: Moderately Suspicious EKG: Non Specific repolarisation Disturbance Age: 45-65 Risk Factors: Equal/Greater than 3 risk factor or history of atherosclerotic disease Troponin: Less than normal limit HEART Score Total: 5
[2018-01-19 21:10] LABS: Basophils # 0.1 K/mcL (0.0-0.2); Basophils % 0.8 %; Eosinophils # 0.2 K/mcL (0.0-0.6); Hematocrit 39.2 % (37.5-50.1); Immature Granulocytes % 0.4 % (0-4); Lymphocytes # 2.4 K/mcL (0.6-4.6); Lymphocytes % 30.4 %; Mean Corpuscular HGB Conc 33.2 g/dL (31.6-35.5); Mean Corpuscular Hemoglobin 29.4 pg (28.0-33.3); Mean Corpuscular Volume 88.7 fL (83.0-100.0); Mean Platelet Volume 11.6 fL (9.4-12.4); Monocytes # 0.8 K/mcL (0.0-1.3); Monocytes % 10.5 %; Neutrophils # 4.3 K/mcL (1.6-8.9); Platelet Count 191 K/mcL (140-400); Red Blood Count 4.42 M/mcL (4.19-5.50); Red Cell Distribution Width 14.9 % (11.5-14.5); Segmented Neutrophils % 54.9 %
[2018-01-19 21:19] LABS: Activated Partial Thrombo Time 36.5 Seconds (26.0-36.0)
[2018-01-19 21:29] LABS: BUN/Creatinine Ratio 13 (6-26); Blood Urea Nitrogen 18 mg/dL (6-20); Calcium 8.9 mg/dL (8.6-10.3); Carbon Dioxide 24 mEq/L (23-29); Chloride 104 mEq/L (98-107); Glucose 80 mg/dL (70-105); Osmolality,Calculated 281 (280-300); Potassium 4.2 mEq/L (3.5-5.1); Sodium 135 mEq/L (136-145); Troponin I < 0.03 ng/mL (< 0.04); eGFR For African Americans > 60 (> 60); eGFR For Non-African Americans 54 (> 60)
[2018-01-19] MEDS ORDERED: *HR* Dextrose 50 % in Water (Syg) 50 ML SYRINGE IVP PRN (21:55)
[2018-01-19] MEDS ORDERED: Dextrose Gel 15 GM/37.5 ML TUBE PO PRN ×2 (21:55)
[2018-01-19] MEDS ORDERED: D5% in Water 1,000 ML IVC PRN (21:55)
[2018-01-19] MEDS ORDERED: Acetaminophen 325 MG TABLET PO PRN (21:56)
[2018-01-19] MEDS ORDERED: Naloxone 0.4 MG/ML INJ IVP PRN (21:56)
[2018-01-19] MEDS ORDERED: Nitroglycerin 0.4 MG TAB.SUBL SL PRN (21:56)
--- NOTE | 2018-01-19 21:59 | Internal Med History&Physical ---
Date of Encounter: 01/20/18 Time of Encounter: 21:57 Internal Medicine - H&P: HPI Chief complaint: chest pain Admitted From: Emergency Dept Plans for Post Hospital Care: Home History of present illness: Mr. 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 The patient was hoeing weed in his garden in the morning and finished around 9 AM. He was doing well up until 4 PM when he started feeling chest tightness with no radiation. This continued throughout the evening and he decided to come to the ED. He has no other associated symptoms such as shortness of breath or diaphoresis. He does report slight dizziness. In the ED the patient underwent workup that was unremarkable including troponins that were not elevated and EKG with no ST or T-wave changes. The pressure was mildly elevated upon presentation at 174/95. The patient was given an adult dose aspirin. Of note the patient underwent a left heart catheterization about 2 years ago showing 50% stenosis in the first diagonal, 20% stenosis in proximal LAD, 15% stenosis of the proximal circumflex , 20% stenosis in the proximal RCA. Patient denies any fever, chills, headache , blurry vision, shortness breath, abdominal pain, diarrhea, constipation, urinary symptoms, or neurological symptoms. Past Med Surg Social Fam HX - Past Medical History Medical history: diabetes, hypertension, renal disease, other Additional medical history: bipolar, schizophrenia, Anxiety , depression, back sx, guillian barre, Psychiatric history: anxiety, bipolar, depression, schizophrenia - Past Surgical History Surgical History: orthopedic, other Additional surgical history: tonsils removed, neck fusion, on right foot 2nd digit toe removed. - Social History Smoking Status: Never smoker Smokeless Tobacco Status: No Alcohol use: none Drug use: none - Family History Father Living Status: Mother Family Member Ethnicity: Non- Living Status: Still Living Hx Family Endocrine Disorder: Yes (diabetes mellitus) Internal Medicine - H&P: Meds BuPROPion XL (24 HR) [Wellbutrin Xl] 300 mg PO QAM 04/16/15 [History] Multivitamin/Iron/Folic Acid [Centrum Complete Multivit Tab] 1 tab PO DAILY [History] Pravastatin Sodium [Pravachol] 40 mg PO DAILY 04/16/15 [History] ALPRAZolam [Xanax 0.5 MG Tablet] 0.5 mg PO TID PRN 07/01/16 [History] Aspirin 81 mg PO DAILY 07/01/16 [History] Carvedilol [Coreg] 12.5 mg PO BID 07/01/16 [History] Cholecalciferol (Vitamin D3) [Vitamin D3] 2,000 unit PO DAILY 07/01/16 [History] Fluticasone Propionate Nasal [Flonase] 50 mcg NS DAILY 07/01/16 [History] Furosemide [Lasix] 20 mg PO DAILY 07/01/16 [History] Insulin ASPART [Novolog Flexpen] 4 - 12 unit SQ TID 07/01/16 [History] Lisinopril [Zestril] 40 mg PO DAILY 07/01/16 [History] Lurasidone HCl [Latuda] 120 mg PO DAILY 07/01/16 [History] Metformin HCl [Fortamet] 1,000 mg PO BID 07/01/16 [History] Potassium Chloride [Klor-Con Sprinkle] 10 meq PO DAILY 07/01/16 [History] Testosterone Cypionate [Depo-Testosterone] 200 mg IM Q2W 07/01/16 [History] Albuterol Sulfate [Albuterol Inhaler] 1 - 2 puff IH Q4HR PRN 07/02/17 [History] Allopurinol [Zyloprim 100 MG] 200 mg PO DAILY 07/02/17 [History] Tramadol HCl/Acetaminophen [Ultracet Tablet] 1 tab PO Q6H PRN 07/02/17 [History] Citalopram Hydrobromide [Citalopram HBr] 20 mg PO DAILY 01/19/18 [History] Divalproex (24 HR) [Depakote ER (24 HR)] 1,500 mg PO HS 01/19/18 [History] Gabapentin [Neurontin] 300 mg PO TID 01/19/18 [History] Hydralazine HCl 100 mg PO TID 01/19/18 [History] Insulin DETEMIR [Levemir Flextouch] 36 units SQ BID 01/19/18 [History] 3 Allergy/AdvReac Type Severity Reaction Status Date / Time influenza A (H1N1) virus Allergy Unknown Pt has Verified 01/19/18 20:12 vaccine m-[place]-split 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 Review of systems: All systems reviewed are negative except as mentioned above - Constitutional Vitals: Temp Pulse Resp BP Pulse Ox 98.1 F 66 20 174/95 97 01/19/18 20:06 01/19/18 20:06 01/19/18 20:06 01/19/18 20:06 01/19/18 20:06 Exam: GEN: NAD HEENT: AT, NC, No cyanosis, oral mucosa is moist, No JVD Lymphatics: No lymphadenoapthy Eyes: Extrocular muscles intact, anicteric CVS:RRR. S1, S2, No m/r/g RESP: CTAB ABD: Soft, NT, ND, +BS EXT: No edema, No rashes, 2+ DP NEURO: Nonfocal, CN II-XII intact, No focal motor or sensory deficits Psych: Cooperative, Not anxious or depressed Internal Med - H&P Results - Labs CBC & Chem 7: 01/19/18 20:49 01/19/18 20:49 Labs: Short CBC 01/19/18 Range/Units 20:49 WBC 7.8 (4.3-11.1) K/mcL Hgb 13.0 (12.9-16.9) g/dL Hct 39.2 (37.5-50.1) % Plt Count 191 (140-400) K/mcL Neutrophils # 4.3 (1.6-8.9) K/mcL BMP 01/19/18 20:49 Sodium 135 L Potassium 4.2 Chloride 104 Carbon Dioxide 24 BUN 18 Creatinine 1.37 H Glucose 80 Calcium 8.9 Cardiac Enzymes 01/19/18 Range/Units 20:49 Troponin I < 0.03 (< 0.04) ng/mL - Impressions ITS Impressions Chest X-Ray 01/19/18 20:35 IMPRESSION: No acute cardiopulmonary disease. D/ / Jorge Gallagher MD / Jorge Gallagher MD Interpreting Provider: Jorge Gallagher MD - Assessment and plan (1) Chest pain Current Visit: Yes Status: Acute Assessment and plan: Admit to tele. Trend cardiac enzymes. Stress test in am. Check A1c, lipid panel. SL nitro PRN. c/w ASA. Qualifiers: Chest pain type: unspecified Qualified Code(s): R07.9 - Chest pain, unspecified (2) Diabetes mellitus Current Visit: Yes Status: Acute Assessment and plan: We will place patient on insulin sliding scale. Accu-Cheks. Qualifiers: Diabetes mellitus type: type 2 Diabetes mellitus care home insulin use: with rn long term care use Diabetes mellitus complication status: with neurologic complications Diabetes mellitus complication detail: with unspecified neuropathy Qualified Code(s): E11.40 - Type 2 diabetes mellitus with diabetic neuropathy, unspecified; Z79.4 - residential (current) use of insulin (3) CKD stage 3 secondary to diabetes Current Visit: Yes Status: Acute Assessment and plan: Stable around baseline. We will monitor. (4) Bipolar disorder Current Visit: No Status: Chronic Assessment and plan: Continue home meds. Qualifiers: Active/Remission status: in remission of unspecified degree Qualified Code( s): F31.70 - Bipolar disorder, currently in remission, most recent episode unspecified (5) Hyperlipidemia Current Visit: No Status: Chronic Assessment and plan: Continue meds Qualifiers: Hyperlipidemia type: unspecified Qualified Code(s): E78.5 - Hyperlipidemia , unspecified (6) Hypertension Current Visit: No Status: Chronic Assessment and plan: Blood pressure slightly elevated. We will resume home antihypertensives and placed patient on IV hydralazine when necessary. Qualifiers: Hypertension type: unspecified Qualified Code(s): I10 - Essential (primary ) hypertension (7) DVT prophylaxis Current Visit: No Status: Acute Assessment and plan: Heparin subcutaneous - Time Spent With Patient Total time spent is greater than 50% in coordination of care (as documented) at patient's floor/unit and/or counseling patient:
[2018-01-20] MEDS: Insulin LISPRO 300 UNITS/3 ML VIAL SQ SCH ×5 (00:12→22:03)
[2018-01-20] MEDS: Divalproex (24 HR) 500 MG TABLET PO SCH ×2 (01:24→20:14)
[2018-01-20] MEDS: Gabapentin 300 MG CAPSULE PO SCH ×4 (01:24→20:14)
[2018-01-20 04:17] LABS: Basophils # 0.1 K/mcL (0.0-0.2); Basophils % 0.9 %; Eosinophils # 0.3 K/mcL (0.0-0.6); Eosinophils % 3.4 %; Hematocrit 39.2 % (37.5-50.1); Hemoglobin 13.2 g/dL (12.9-16.9); Immature Granulocytes % 0.4 % (0-4); Lymphocytes # 2.5 K/mcL (0.6-4.6); Lymphocytes % 33.4 %; Mean Corpuscular HGB Conc 33.7 g/dL (31.6-35.5); Mean Corpuscular Hemoglobin 29.5 pg (28.0-33.3); Mean Corpuscular Volume 87.7 fL (83.0-100.0); Mean Platelet Volume 11.9 fL (9.4-12.4); Monocytes # 0.8 K/mcL (0.0-1.3); Monocytes % 9.9 %; Neutrophils # 3.9 K/mcL (1.6-8.9); Platelet Count 186 K/mcL (140-400); Red Blood Count 4.47 M/mcL (4.19-5.50)
[2018-01-20 04:29] LABS: BUN/Creatinine Ratio 14 (6-26); Blood Urea Nitrogen 18 mg/dL (6-20); Carbon Dioxide 26 mEq/L (23-29); Chloride 106 mEq/L (98-107); Chol/HDL Ratio 3.5 (0-4.9); Cholesterol 128 mg/dL (< 200); Glucose 103 mg/dL (70-105); HDL Cholesterol 37 mg/dL (40-59); LDL Cholesterol,Calculated 72 mg/dL (0-99); Magnesium 1.9 mg/dL (1.6-2.6); Osmolality,Calculated 288 (280-300); Potassium 3.7 mEq/L (3.5-5.1); Sodium 138 mEq/L (136-145); Triglycerides 97 mg/dL (< 150); eGFR For African Americans > 60 (> 60); eGFR For Non-African Americans 57 (> 60)
[2018-01-20] MEDS ORDERED: Regadenoson 0.4 MG/5 ML SYRINGE IVP ONE (06:57)
[2018-01-20] MEDS ORDERED: Gabapentin 300 MG CAPSULE PO SCH (09:00)
[2018-01-20] MEDS ORDERED: INSULIN DETEMIR 36 UNIT SQ SCH (09:00)
[2018-01-20] MEDS ORDERED: LURASIDONE HCL 120 MG PO SCH (09:00)
--- NOTE | 2018-01-20 12:37 | Internal Med Progress Note ---
Date of Encounter: 01/20/18 Time of Encounter: 12:36 - Assessment and plan (1) Chest pain Current Visit: Yes Status: Acute Assessment and plan: Presented with midsternal chest pain/tightness with no radiation This is not brought on by exertion but did occur shortly after working in his garden No associated symptoms such as shortness of breath, diaphoresis, nausea Troponins negative 3, chest pain resolved with 1 sublingual nitroglycerin Denies any prior history of WA, reports an C 2 years ago showing 50% stenosis in the first diagonal Procedure factors include morbid obesity, hypertension, family history of WA Patient to undergo today's stress test, for stress test completed today Reported no chest pain or shortness of breath during stress test Remains hemodynamically stable and chest pain Continue monitor on telemetry, continuous second part of stress test on Monday SL nitroglycerin when necessary Continue aspirin and statin Qualifiers: Chest pain type: unspecified Qualified Code(s): R07.9 - Chest pain, unspecified (2) Bipolar disorder Current Visit: No Status: Chronic Assessment and plan: Continue bipolar medications Qualifiers: Active/Remission status: in remission of unspecified degree Qualified Code( s): F31.70 - Bipolar disorder, currently in remission, most recent episode unspecified (3) Hypertension Current Visit: No Status: Chronic Assessment and plan: Blood pressure continues to be slightly elevated. Continue home antihypertensives and placed patient on IV hydralazine when necessary. Monitor closely Qualifiers: Hypertension type: unspecified Qualified Code(s): I10 - Essential (primary ) hypertension (4) Hyperlipidemia Current Visit: No Status: Chronic Assessment and plan: History of HLD, continue Zocor Qualifiers: Hyperlipidemia type: unspecified Qualified Code(s): E78.5 - Hyperlipidemia , unspecified (5) Diabetes mellitus Current Visit: Yes Status: Acute Assessment and plan: History of diabetes, hemoglobin A1c 12/28/17 5.9 on insulin sliding scale. Accu-Cheks, thus far, adequate blood glucose control while inpatient Qualifiers: Diabetes mellitus type: type 2 Diabetes mellitus terminal supervisor insulin use: with terminal supervisor use Diabetes mellitus complication status: with neurologic complications Diabetes mellitus complication detail: with unspecified neuropathy Qualified Code(s): E11.40 - Type 2 diabetes mellitus with diabetic neuropathy, unspecified; Z79.4 - USP (current) use of insulin (6) CKD stage 3 secondary to diabetes Current Visit: Yes Status: Acute Assessment and plan: History of CKD 3, today's renal function appears to be around patient's baseline , continue to monitor (7) DVT prophylaxis Current Visit: No Status: Acute Assessment and plan: Continue subcutaneous heparin - Time Spent With Patient Total time spent is greater than 50% in coordination of care (as documented) at patient's floor/unit and/or counseling patient: 25 - 35 minutes - Subjective Interval history: Patient seen and examined at bedside today. No acute changes overnight. Admitted for ACS rule out. Denies any current chest pain, shortness of breath or discomfort. He reports that he did not experience any chest pain during stress test this morning. - Constitutional Vitals: Temp Pulse Resp BP Pulse Ox 98.2 F 67 15 154/79 95 01/20/18 11:04 01/20/18 11:04 01/20/18 11:04 01/20/18 11:04 01/20/18 11:04 General appearance: Present: A&O X 3, morbidly obese - Head Head exam: Present: atraumatic, normocephalic - Eye Eye exam: Present: PERRL, conjuntiva pink, sclera anicteric Pupils: Present: PERRL - Neck Neck exam general surgery: Present: supple, trachea midline. Absent: lymphadenopathy - Respiratory Respiratory exam: Present: CTAB. Absent: accessory muscle use, rales, rhonchi, wheezes - Cardiovascular Cardiovascular exam: Present: RRR, +S1, +S2. Absent: diastolic murmur, gallop, rubs, systolic murmur - GI/Abdominal GI/Abdominal exam: Present: normal bowel sounds, soft, no peritoneal signs. Absent: distended, tenderness - Extremities Exam Extremities exam: Present: warm, radial pulses palpable and symmetrical. Absent : calf tenderness, cyanotic, pedal edema - Neurological Exam Neurological exam: Present: CN II-XII intact, oriented X3, no focal deficits. Absent: pronater drift, facial droop, speech deficit - Skin Skin exam: Present: dry, intact Internal Medicine: Result - Labs CBC & Chem 7: 01/20/18 03:42 01/20/18 03:42 Labs: Short CBC 01/20/18 Range/Units 03:42 WBC 7.5 (4.3-11.1) K/mcL Hgb 13.2 (12.9-16.9) g/dL Hct 39.2 (37.5-50.1) % Plt Count 186 (140-400) K/mcL Neutrophils # 3.9 (1.6-8.9) K/mcL BMP 01/20/18 03:42 Sodium 138 Potassium 3.7 Chloride 106 Carbon Dioxide 26 BUN 18 Creatinine 1.32 H Glucose 103 Calcium 9.0 Cardiac Enzymes 01/20/18 01/20/18 Range/Units 03:42 10:27 Troponin I < 0.03 < 0.03 (< 0.04) ng/mL - ABG Interpretation ABG results: PT/INR, D-dimer PT 11.0 Seconds (9.4-12.1) 01/19/18 20:49 Consult Discharge Plan - Plan Referrals: Crystal Noonan CNP [Primary Care Provider] -
[2018-01-20] MEDS: Cholecalciferol (D-3) 1,000 UNIT TABLET PO SCH (12:47)
[2018-01-20] MEDS: Multivit/Ca/Min/Fe/FA 1 TAB TABLET PO SCH (12:48)
[2018-01-20] MEDS: hydrALAZINE 25 MG TABLET PO SCH ×3 (12:48→20:14)
[2018-01-20] MEDS: Aspirin 81 MG TAB.CHEW PO SCH (12:48)
[2018-01-20] MEDS: Furosemide 20 MG TABLET PO SCH (12:48)
[2018-01-20] MEDS: Fluticasone Propionate Nasal 50 MCG/SPRAY BOTTLE NS SCH (12:49)
[2018-01-20] MEDS: Lisinopril 20 MG TABLET PO SCH (12:49)
[2018-01-20] MEDS: BuPROPion XL (24 HR) 150 MG TABLET PO SCH (12:49)
[2018-01-20] MEDS: ALPRAZolam 0.5 MG TABLET PO PRN ×2 (12:57→20:23)
[2018-01-20] MEDS: traMADol 50 MG TABLET PO PRN ×2 (12:57→20:23)
[2018-01-20] MEDS: Insulin DETEMIR 100 UNIT/ML X5UNITS SQ SCH ×2 (12:59→21:26)
[2018-01-20] MEDS ORDERED: Divalproex (24 HR) 500 MG TABLET PO SCH (21:00)
--- NOTE | 2018-01-21 05:25 | Internal Med Progress Note ---
Date of Encounter: 01/21/18 Time of Encounter: 05:22 - Assessment and plan (1) Chest pain Current Visit: Yes Status: Acute Assessment and plan: Presented with midsternal chest pain/tightness with no radiation This is not brought on by exertion but did occur hours after working in his garden No associated symptoms such as shortness of breath, diaphoresis, nausea Troponins negative 3, chest pain resolved with 1 sublingual nitroglycerin Denies any prior history of [place], reports an C 2 years ago showing 50% stenosis in the first diagonal Risk factors include morbid obesity, hypertension, family history of [place] Patient undergoing 2 day stress test. Second stress test tomorrow morning Continues to report no chest pain or shortness of breath, Remains hemodynamically stable TTE completed yesterday-awaiting results Continue monitor on telemetry SL nitroglycerin when necessary Continue aspirin and statin Qualifiers: Chest pain type: unspecified Qualified Code(s): R07.9 - Chest pain, unspecified (2) Bipolar disorder Current Visit: No Status: Chronic Assessment and plan: Continue bipolar medications Qualifiers: Active/Remission status: in remission of unspecified degree Qualified Code( s): F31.70 - Bipolar disorder, currently in remission, most recent episode unspecified (3) Hypertension Current Visit: No Status: Chronic Assessment and plan: Blood pressure continues to be slightly elevated. Few episodes of HTN yesterday but patient was not getting his anti-HTN medications as scheduled yesterday. BP improved this am. Continue to monitor and adjust meds if necessary Continue home antihypertensives and placed patient on IV hydralazine when necessary. Qualifiers: Hypertension type: unspecified Qualified Code(s): I10 - Essential (primary ) hypertension (4) Hyperlipidemia Current Visit: No Status: Chronic Assessment and plan: History of HLD, continue Zocor Qualifiers: Hyperlipidemia type: unspecified Qualified Code(s): E78.5 - Hyperlipidemia , unspecified (5) Diabetes mellitus Current Visit: Yes Status: Acute Assessment and plan: History of diabetes, hemoglobin A1c 12/28/17 5.9 on insulin sliding scale. Accu-Cheks, thus far, adequate blood glucose control while inpatient Qualifiers: Diabetes mellitus type: type 2 Diabetes mellitus fci insulin use: with machine long goods helper use Diabetes mellitus complication status: with neurologic complications Diabetes mellitus complication detail: with unspecified neuropathy Qualified Code(s): E11.40 - Type 2 diabetes mellitus with diabetic neuropathy, unspecified; Z79.4 - ad terminal makeup operator (current) use of insulin (6) CKD stage 3 secondary to diabetes Current Visit: Yes Status: Acute Assessment and plan: History of CKD 3, today's SR CR seems to be around patient's baseline, continue to monitor (7) DVT prophylaxis Current Visit: No Status: Acute Assessment and plan: Continue subcutaneous heparin - Time Spent With Patient Total time spent is greater than 50% in coordination of care (as documented) at patient's floor/unit and/or counseling patient: 25 - 35 minutes - Subjective Interval history: Patient seen and examined at bedside today. No acute changes overnight. Admitted for ACS rule out. Denies any current chest pain, shortness of breath or discomfort. - Constitutional Vitals: Temp Pulse Resp BP Pulse Ox 98.1 F 68 16 157/84 95 01/21/18 04:34 01/21/18 04:34 01/21/18 04:34 01/21/18 04:34 01/21/18 04:34 General appearance: Present: A&O X 3, morbidly obese - Head Head exam: Present: atraumatic, normocephalic - Eye Eye exam: Present: PERRL, conjuntiva pink, sclera anicteric Pupils: Present: PERRL - Neck Neck exam general surgery: Present: supple, trachea midline. Absent: lymphadenopathy - Respiratory Respiratory exam: Present: CTAB. Absent: accessory muscle use, rales, rhonchi, wheezes - Cardiovascular Cardiovascular exam: Present: RRR, +S1, +S2. Absent: diastolic murmur, gallop, rubs, systolic murmur - GI/Abdominal GI/Abdominal exam: Present: normal bowel sounds, soft, no peritoneal signs. Absent: distended, tenderness - Extremities Exam Extremities exam: Present: warm, radial pulses palpable and symmetrical. Absent : calf tenderness, cyanotic, pedal edema - Neurological Exam Neurological exam: Present: CN II-XII intact, oriented X3, no focal deficits. Absent: pronater drift, facial droop, speech deficit - Skin Skin exam: Present: dry, intact Internal Medicine: Result - Labs CBC & Chem 7: 01/20/18 03:42 01/20/18 03:42 Labs: Cardiac Enzymes 01/20/18 Range/Units 10:27 Troponin I < 0.03 (< 0.04) ng/mL - ABG Interpretation ABG results: PT/INR, D-dimer PT 11.0 Seconds (9.4-12.1) 01/19/18 20:49 Consult Discharge Plan - Plan Referrals: Crystal Noonan CNP [Primary Care Provider] -
[2018-01-21 06:15] LABS: Basophils # 0.1 K/mcL (0.0-0.2); Basophils % 0.6 %; Eosinophils # 0.3 K/mcL (0.0-0.6); Eosinophils % 3.3 %; Hematocrit 40.7 % (37.5-50.1); Hemoglobin 13.6 g/dL (12.9-16.9); Immature Granulocytes % 0.4 % (0-4); Lymphocytes # 2.1 K/mcL (0.6-4.6); Lymphocytes % 25.9 %; Mean Corpuscular HGB Conc 33.4 g/dL (31.6-35.5); Mean Corpuscular Hemoglobin 29.6 pg (28.0-33.3); Mean Corpuscular Volume 88.5 fL (83.0-100.0); Mean Platelet Volume 11.3 fL (9.4-12.4); Monocytes # 0.8 K/mcL (0.0-1.3); Monocytes % 9.9 %; Neutrophils # 4.9 K/mcL (1.6-8.9); Platelet Count 185 K/mcL (140-400); Red Cell Distribution Width 14.8 % (11.5-14.5); Segmented Neutrophils % 59.9 %
[2018-01-21 06:32] LABS: BUN/Creatinine Ratio 13 (6-26); Blood Urea Nitrogen 18 mg/dL (6-20); Calcium 9.3 mg/dL (8.6-10.3); Carbon Dioxide 27 mEq/L (23-29); Chloride 104 mEq/L (98-107); Glucose 85 mg/dL (70-105); Osmolality,Calculated 283 (280-300); Sodium 136 mEq/L (136-145); eGFR For African Americans > 60 (> 60); eGFR For Non-African Americans 53 (> 60)
[2018-01-21] MEDS: Cholecalciferol (D-3) 1,000 UNIT TABLET PO SCH (08:12)
[2018-01-21] MEDS: Aspirin 81 MG TAB.CHEW PO SCH (08:13)
[2018-01-21] MEDS: hydrALAZINE 25 MG TABLET PO SCH ×3 (08:13→20:27)
[2018-01-21] MEDS: BuPROPion XL (24 HR) 150 MG TABLET PO SCH (08:13)
[2018-01-21] MEDS: Gabapentin 300 MG CAPSULE PO SCH ×3 (08:13→20:26)
[2018-01-21] MEDS: Multivit/Ca/Min/Fe/FA 1 TAB TABLET PO SCH (08:13)
[2018-01-21] MEDS: Furosemide 20 MG TABLET PO SCH (08:13)
[2018-01-21] MEDS: Lisinopril 20 MG TABLET PO SCH (08:13)
[2018-01-21] MEDS: Insulin LISPRO 300 UNITS/3 ML VIAL SQ SCH ×4 (08:14→21:38)
[2018-01-21] MEDS: Fluticasone Propionate Nasal 50 MCG/SPRAY BOTTLE NS SCH (08:27)
[2018-01-21] MEDS: Insulin DETEMIR 100 UNIT/ML X5UNITS SQ SCH ×2 (08:27→21:46)
[2018-01-21] MEDS: traMADol 50 MG TABLET PO PRN ×3 (08:32→21:46)
[2018-01-21] MEDS ORDERED: traMADol 50 MG TABLET PO PRN (10:44)
[2018-01-21] MEDS: ALPRAZolam 0.5 MG TABLET PO PRN (20:26)
[2018-01-21] MEDS: Divalproex (24 HR) 500 MG TABLET PO SCH (20:27)
[2018-01-22 05:55] LABS: Basophils # 0.1 K/mcL (0.0-0.2); Basophils % 0.8 %; Eosinophils # 0.3 K/mcL (0.0-0.6); Eosinophils % 3.3 %; Hematocrit 41.6 % (37.5-50.1); Immature Granulocytes % 0.2 % (0-4); Lymphocytes # 2.8 K/mcL (0.6-4.6); Lymphocytes % 32.3 %; Mean Corpuscular HGB Conc 33.7 g/dL (31.6-35.5); Mean Corpuscular Hemoglobin 29.7 pg (28.0-33.3); Mean Corpuscular Volume 88.3 fL (83.0-100.0); Mean Platelet Volume 12.2 fL (9.4-12.4); Monocytes # 0.8 K/mcL (0.0-1.3); Monocytes % 9.7 %; Neutrophils # 4.6 K/mcL (1.6-8.9); Platelet Count 202 K/mcL (140-400); Red Blood Count 4.71 M/mcL (4.19-5.50); Red Cell Distribution Width 14.6 % (11.5-14.5); Segmented Neutrophils % 53.7 %
[2018-01-22 06:04] LABS: BUN/Creatinine Ratio 15 (6-26); Blood Urea Nitrogen 22 mg/dL (6-20); Calcium 9.2 mg/dL (8.6-10.3); Carbon Dioxide 28 mEq/L (23-29); Chloride 104 mEq/L (98-107); Glucose 74 mg/dL (70-105); Osmolality,Calculated 288 (280-300); Potassium 4.1 mEq/L (3.5-5.1); Sodium 138 mEq/L (136-145); eGFR For African Americans > 60 (> 60); eGFR For Non-African Americans 52 (> 60)
[2018-01-22] MEDS: Insulin LISPRO 300 UNITS/3 ML VIAL SQ SCH ×2 (07:41→12:18)
[2018-01-22] MEDS: Cholecalciferol (D-3) 1,000 UNIT TABLET PO SCH (08:43)
[2018-01-22] MEDS: Lisinopril 20 MG TABLET PO SCH (08:43)
[2018-01-22] MEDS: Furosemide 20 MG TABLET PO SCH (08:43)
[2018-01-22] MEDS: Multivit/Ca/Min/Fe/FA 1 TAB TABLET PO SCH (08:43)
[2018-01-22] MEDS: BuPROPion XL (24 HR) 150 MG TABLET PO SCH (08:43)
[2018-01-22] MEDS: hydrALAZINE 25 MG TABLET PO SCH (08:43)
[2018-01-22] MEDS: Fluticasone Propionate Nasal 50 MCG/SPRAY BOTTLE NS SCH (08:44)
[2018-01-22] MEDS: Gabapentin 300 MG CAPSULE PO SCH (08:44)
[2018-01-22] MEDS: Aspirin 81 MG TAB.CHEW PO SCH (08:44)
[2018-01-22] MEDS: Insulin DETEMIR 100 UNIT/ML X5UNITS SQ SCH (08:52)
--- NOTE | 2018-01-22 09:11 | Internal Med Progress Note ---
Date of Encounter: 01/22/18 Time of Encounter: 09:08 - Assessment and plan (1) Chest pain Current Visit: Yes Status: Acute Qualifiers: Chest pain type: unspecified Qualified Code(s): R07.9 - Chest pain, unspecified (2) Bipolar disorder Current Visit: No Status: Chronic Qualifiers: Active/Remission status: in remission of unspecified degree Qualified Code( s): F31.70 - Bipolar disorder, currently in remission, most recent episode unspecified (3) Hypertension Current Visit: No Status: Chronic Qualifiers: Hypertension type: unspecified Qualified Code(s): I10 - Essential (primary ) hypertension (4) Hyperlipidemia Current Visit: No Status: Chronic Qualifiers: Hyperlipidemia type: unspecified Qualified Code(s): E78.5 - Hyperlipidemia , unspecified (5) Diabetes mellitus Current Visit: Yes Status: Acute Qualifiers: Diabetes mellitus type: type 2 Diabetes mellitus [facility] insulin use: with termination clerk use Diabetes mellitus complication status: with neurologic complications Diabetes mellitus complication detail: with unspecified neuropathy Qualified Code(s): E11.40 - Type 2 diabetes mellitus with diabetic neuropathy, unspecified; Z79.4 - [facility] (current) use of insulin (6) CKD stage 3 secondary to diabetes Current Visit: Yes Status: Acute (7) DVT prophylaxis Current Visit: No Status: Acute (8) Acute renal failure superimposed on stage 3 chronic kidney disease Current Visit: Yes Status: Acute Assessment and plan: Likely 2/2 lasix use. Renal function continues to worsen Stop lasix and monitor renal function daily gentle IVF x1 liter 0.9% NS - Time Spent With Patient Total time spent is greater than 50% in coordination of care (as documented) at patient's floor/unit and/or counseling patient: - Subjective Interval history: Patient seen and examined at bedside today. No acute changes overnight. Admitted for ACS rule out. Denies any current chest pain, shortness of breath or discomfort. - Constitutional Vitals: Temp Pulse Resp BP Pulse Ox 98.0 F 64 18 181/97 96 01/22/18 07:42 01/22/18 07:42 01/22/18 07:42 01/22/18 07:42 01/22/18 07:42 General appearance: Present: A&O X 3, morbidly obese Internal Medicine: Result - Labs CBC & Chem 7: 01/22/18 04:50 01/22/18 04:50 Labs: Short CBC 01/22/18 Range/Units 04:50 WBC 8.5 (4.3-11.1) K/mcL Hgb 14.0 (12.9-16.9) g/dL Hct 41.6 (37.5-50.1) % Plt Count 202 (140-400) K/mcL Neutrophils # 4.6 (1.6-8.9) K/mcL BMP 01/22/18 04:50 Sodium 138 Potassium 4.1 Chloride 104 Carbon Dioxide 28 BUN 22 H Creatinine 1.42 H Glucose 74 Calcium 9.2 - ABG Interpretation ABG results: PT/INR, D-dimer PT 11.0 Seconds (9.4-12.1) 01/19/18 20:49 - Impressions Impressions Echocardiogram 01/20/18 08:07 Impressions: LVEF 60%. Mild concentric left ventricular hypertrophy. Mild left ventricular diastolic dysfunction. Normal right ventricular structure and function. No significant valvular dysfunction. No pulmonary hypertension. Left Ventricular Wall Motion: Rest Echo Findings All wall segments showed normal motion. Findings: Study Quality * Technically adequate exam. ECG Findings * Normal sinus rhythm. Left Ventricle * LVEF 60%. * Mild concentric left ventricular hypertrophy. * Normal LV chamber size. * Mild left ventricular diastolic dysfunction. Right Ventricle * Normal right ventricular structure and function. Left Atrium * Normal left atrial size. Right Atrium * Normal right atrial size. Mitral Valve * Normal mitral valve structure. * No mitral stenosis. * No mitral regurgitation. Aortic Valve * No aortic regurgitation. * No aortic stenosis. * Aortic valve not well visualized. Tricuspid Valve * Tricuspid valve not well visualized. * No tricuspid regurgitation. Pulmonic Valve * Pulmonic valve is not well visualized. * No pulmonic stenosis. * No pulmonic regurgitation. Pulmonary Artery * Pulmonary artery not well visualized. Aorta * Normally sized aortic root. Pericardium * There is no pericardial effusion present. Interatrial Septum * No evidence of PFO by color Doppler. IVC * The IVC is not dilated. Consult Discharge Plan - Plan Referrals: Crystal Noonan CNP [Primary Care Provider] -
[2018-01-22] MEDS ORDERED: 0.9 % Sodium Chloride 1,000 ML IVC SCH (09:15)
[2018-01-22] MEDS ORDERED: amLODIPine 5 MG TABLET PO SCH (11:00)
[2018-01-22] MEDS: traMADol 50 MG TABLET PO PRN (11:05)
[2018-01-22 12:04] VITALS: BP 151/81
--- NOTE | 2018-01-22 14:40 | Discharge Summary ---
- NOTES TO OUTPATIENT PROVIDER Notes to Outpatient Provider: Patient admitted for chest pain rule out. Stress test completed found to be negative for ischemia. The return of chest pain throughout stay, uneventful hospital course. Instructed to follow-up with PCP within 1 week of discharge. No studies pending at discharge Date of Encounter: 01/22/18 Time of Encounter: 14:38 - Discharge Diagnosis (1) Chest pain Priority: Primary Status: Acute Assessment and Plan: Presented with midsternal chest pain/tightness with no radiation This is not brought on by exertion but did occur hours after working in his garden No associated symptoms such as shortness of breath, diaphoresis, nausea Troponins negative 3, chest pain resolved with 1 sublingual nitroglycerin Denies any prior history of [place], reports an LHC 2 years ago showing 50% stenosis in the first diagonal Risk factors include morbid obesity, hypertension, family history of [place] 2 day stress test negative for ischemia Continues to report no chest pain or shortness of breath, Remains hemodynamically stable TTE-60% EF, mild left ventricular hypertrophy, mild left ventricular diastolic dysfunction, normal right ventricular structure and function, no significant valvular dysfunction, no pulmonary hypertension Has not had a return of chest pain throughout this admission, uncomplicated hospital course, mild intermittent hypertension, new antihypertensive medications added. Recommended patient stay for further monitoring 1 additional day with the addition of adding new anterior HTN medications and hypertensive episode as well as NEHA. Risks of leaving without further monitoring explained, patient verbalizes understanding. Benefits of staying for additional monitoring explained, patient verbalizes understanding and wishes to discharge. Qualifiers: Chest pain type: unspecified Qualified Code(s): R07.9 - Chest pain, unspecified (2) Bipolar disorder Priority: Secondary Status: Chronic Assessment and Plan: Continue bipolar medications Qualifiers: Active/Remission status: in remission of unspecified degree Qualified Code( s): F31.70 - Bipolar disorder, currently in remission, most recent episode unspecified (3) Hypertension Priority: Secondary Status: Chronic Assessment and Plan: Blood pressure continues to be slightly elevated. Added 5 mg by mouth Norvasc to current BP regimen Patient instructed on monitoring and journaling blood pressure throughout the next month Discharge follow-up with PCP within 1 week of discharge Patient explained that with elevated blood pressure in the additional anti-HTN medications and she remained in the hospital for an additional 24 hours for monitoring However, the patient declines and wishes to go home. Risks and complications of unexplained, patient verbalizes understanding Qualifiers: Hypertension type: unspecified Qualified Code(s): I10 - Essential (primary ) hypertension (4) Hyperlipidemia Priority: Secondary Status: Chronic Assessment and Plan: History of HLD, continue Zocor Qualifiers: Hyperlipidemia type: unspecified Qualified Code(s): E78.5 - Hyperlipidemia , unspecified (5) Diabetes mellitus Priority: Secondary Status: Acute Assessment and Plan: History of diabetes, hemoglobin A1c 12/28/17 5.9 Continue oral diuretics at home insulin regimen at discharge Qualifiers: Diabetes mellitus type: type 2 Diabetes mellitus exterminator termite insulin use: with usp use Diabetes mellitus complication status: with neurologic complications Diabetes mellitus complication detail: with unspecified neuropathy Qualified Code(s): E11.40 - Type 2 diabetes mellitus with diabetic neuropathy, unspecified; Z79.4 - middle or intermediate school principal (current) use of insulin (6) CKD stage 3 secondary to diabetes Priority: Secondary Status: Acute Assessment and Plan: History of CKD 3, SR CR 1.42, likely increasing with use of IV diuretics Patient informed that he should stay for further monitoring of renal function Does not wish to stay for further monitoring, risks and complications explained , patient verbalizes understanding Instructed to follow-up with PCP within 1 week of discharge, and to get follow- up lab work to monitor renal function (7) DVT prophylaxis Priority: Secondary Status: Acute (8) Acute renal failure superimposed on stage 3 chronic kidney disease Priority: Secondary Status: Acute Assessment and Plan: Likely 2/2 lasix use. Renal function continues to worsen Stop lasix and monitor renal function daily gentle IVF x1 liter 0.9% NS Qualifiers: Qualified Code(s): N17.9 - Acute kidney failure, unspecified; N18.3 - Chronic kidney disease, stage 3 (moderate) Hospital course: Mr. Sullivan is a 52 year old male Please see assessment and plan for hospital course Discharge discussed with: patient, family, nurse - Time Spent with Patient Total time spent providing and/or coordinating discharge services: Less than 30 minutes - Discharge Medications Prescriptions: amLODIPine [Norvasc] 5 mg PO DAILY 30 Days #30 tablet Home Medications: BuPROPion XL (24 HR) [Wellbutrin Xl] 300 mg PO QAM 04/16/15 [History] Multivitamin/Iron/Folic Acid [Centrum Complete Multivit Tab] 1 tab PO DAILY [History] Pravastatin Sodium [Pravachol] 40 mg PO DAILY 04/16/15 [History] ALPRAZolam [Xanax 0.5 MG Tablet] 0.5 mg PO TID PRN 07/01/16 [History] Aspirin 81 mg PO DAILY 07/01/16 [History] Carvedilol [Coreg] 12.5 mg PO BID 07/01/16 [History] Cholecalciferol (Vitamin D3) [Vitamin D3] 2,000 unit PO DAILY 07/01/16 [History] Fluticasone Propionate Nasal [Flonase] 50 mcg NS DAILY 07/01/16 [History] Furosemide [Lasix] 20 mg PO DAILY 07/01/16 [History] Insulin ASPART [Novolog Flexpen] 4 - 12 unit SQ TID 07/01/16 [History] Lisinopril [Zestril] 40 mg PO DAILY 07/01/16 [History] Lurasidone HCl [Latuda] 120 mg PO DAILY 07/01/16 [History] Metformin HCl [Fortamet] 1,000 mg PO BID 07/01/16 [History] Potassium Chloride [Klor-Con Sprinkle] 10 meq PO DAILY 07/01/16 [History] Testosterone Cypionate [Depo-Testosterone] 200 mg IM Q2W 07/01/16 [History] Albuterol Sulfate [Albuterol Inhaler] 1 - 2 puff IH Q4HR PRN 07/02/17 [History] Allopurinol [Zyloprim 100 MG] 200 mg PO DAILY 07/02/17 [History] Tramadol HCl/Acetaminophen [Ultracet Tablet] 1 tab PO Q6H PRN 07/02/17 [History] Citalopram Hydrobromide [Citalopram HBr] 20 mg PO DAILY 01/19/18 [History] Divalproex (24 HR) [Depakote ER (24 HR)] 1,500 mg PO HS 01/19/18 [History] Gabapentin [Neurontin] 300 mg PO TID 01/19/18 [History] Hydralazine HCl 100 mg PO TID 01/19/18 [History] Insulin DETEMIR [Levemir Flextouch] 36 units SQ BID 01/19/18 [History] amLODIPine [Norvasc] 5 mg PO DAILY 30 Days #30 tablet 01/22/18 [Rx] Allergies/Adverse Reactions: 3 Allergy/AdvReac Type Severity Reaction Status Date / Time influenza A (H1N1) virus Allergy Unknown Pt has Verified 01/19/18 20:12 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 Allergy Difficulty Verified 01/19/18 20:12 Breathing msg Allergy Difficulty Uncoded 01/19/18 20:12 Swallowing Date of admission: 01/19/18 22:56 Primary care physician: Crystal Noonan, LIDDING MACHINE OPERATOR Discharging clinician: Bernardo Jarvis Anticipated date of discharge: 01/22/18 - Constitutional Vitals: Temp Pulse Resp BP Pulse Ox 98.3 F 83 18 151/81 96 01/22/18 12:02 01/22/18 12:02 01/22/18 12:02 01/22/18 12:02 01/22/18 12:02 General appearance: Present: A&O X 3, morbidly obese - Head Head exam: Present: atraumatic, normocephalic - Eye Eye exam: Present: PERRL, conjuntiva pink, sclera anicteric Pupils: Present: PERRL - Neck Neck exam general surgery: Present: supple, trachea midline. Absent: lymphadenopathy - Respiratory Respiratory exam: Present: CTAB. Absent: accessory muscle use, rales, rhonchi, wheezes - Cardiovascular Cardiovascular exam: Present: RRR, +S1, +S2. Absent: diastolic murmur, gallop, rubs, systolic murmur - GI/Abdominal GI/Abdominal exam: Present: normal bowel sounds, soft, no peritoneal signs. Absent: distended, tenderness - Extremities Exam Extremities exam: Present: warm, radial pulses palpable and symmetrical. Absent : calf tenderness, cyanotic, pedal edema - Neurological Exam Neurological exam: Present: CN II-XII intact, oriented X3, no focal deficits. Absent: pronater drift, facial droop, speech deficit - Skin Skin exam: Present: dry, intact - Patient Status Disposition: Home, Self-Care Condition: Fair Overall status at discharge: patient is back to baseline - Discharge Instructions Instructions: Diabetes Mellitus Type 2 in Adults (DC), Chest Pain (DC), Chronic Hypertension (DC) Follow Up With: Brady Mendez MD [Partnered Physician] - 01/31/18 2:45 pm Daryl Aguilar DO [Partnered Physician] - 02/01/18 2:40 pm Crystal Noonan CNP [Primary Care Provider] - 01/29/18 9:00 am Sultana Dorman MD [Partnered Physician] - 03/02/18 1:45 pm - Diet and Activity Activity: increase activity as tolerated, resume usual activities as tolerated Diet: diabetic diet, low fat, low cholesterol
--- NOTE | 2018-01-22 16:41 | Electrocardiograph Report ---
[place] [id number] Test Date: 2018-01-19 Pat Name: Phuong Sullivan Department: 104 Room: 3B16 Gender: M Manager Insurance: : 1965 Requested By: Arpan Alvarenga Order Number: [id number] Reading MD: Kai Barrera Measurements Intervals Nikolai Rate: 64 P: 31 SC: 204 QRS: 5 QRSD: 110 T: 83 QT: 393 QTc: 402 Interpretive Statements SINUS RHYTHM NONSPECIFIC T-WAVE ABNORMALITY Electronically Signed On 01-22-2018 16:40:28 EDT by Kai Barrera
== END 2018-01-22 16:48 | disposition home or self-care (01) ==
LOC: 3BNU 20:05 → EMEROO 20:05 → 3BNU 23:38
PROVIDERS: ADMIT Internal Medicine; ATTEND Internal Medicine

== ENCOUNTER 2018-05-21 13:57 | Observation (INO) ==
--- NOTE | 2018-05-21 14:19 | Emergency Department Note ---
Disposition Clinical Impression: Transient ischemic attack (TIA) Disposition: Admitted As Inpatient Condition: Good Referrals: Saran,Crystal Patel CNP [Primary Care Provider] - Forms: ED Satisfaction Letter Time of Disposition: 15:25 Neuro HPI - General Chief Complaint: ED Neuro Symptoms/Deficit Stated Complaint: slurred speech Time Seen by Provider: 05/21/18 14:06 Source: patient, family Limitations: no limitations - History of Present Illness HPI Narrative: Patient states that 90 minutes prior to arrival he was having trouble walking a straight line, and he started to slur his speech. Patient had an episode where he was slurring his speech before where his sodium was very low and he felt dizzy and lightheaded. After that episode, patient was taken off his chlorthalidone. Pt glucose was 149 at bedside on arrival. Pt was able to take all of his normal medications today, and did not do anything out of the ordinary. Pt reports a history of stress test showing mild peripheral blockages , HTN, diabetes, CKD Stage [address] Aguilar, CAD, hyperlipidemia, and bipolar disorder. He reports he has never been a smoker, has never drank alcohol , and has not done any illicit or illegal drugs. He denies being on any special diet, although he tries to avoid high fat foods. He does not know his list of medications but denies any blood thinners except a baby aspirin that he takes at noon. He reports an 18 pound weight gain over the last 4 months that he does not report knowing the cause for. Onset of Symptoms Date: 05/21/18 Onset of Symptoms Time: 12:45 Symptom Onset Unknown: Yes Timing confirmed by: spouse Location: speech History of same: Yes (previously when found to be hyponatremic) Severity: mild - Related Data Home Medications: Home Medications Medication Instructions Recorded Confirmed BuPROPion XL (24 HR) [Wellbutrin 300 mg PO QAM 04/16/15 05/21/18 Xl] Multivitamin/Iron/Folic Acid 1 tab PO DAILY 04/16/15 05/21/18 [Centrum Complete Multivit Tab] Pravastatin Sodium [Pravachol] 40 mg PO DAILY 04/16/15 05/21/18 ALPRAZolam [Xanax 0.5 MG Tablet] 0.5 mg PO TID PRN 07/01/16 05/21/18 Aspirin 81 mg PO DAILY 07/01/16 05/21/18 Carvedilol [Coreg] 12.5 mg PO BID 07/01/16 05/21/18 Cholecalciferol (Vitamin D3) 2,000 unit PO DAILY 07/01/16 05/21/18 [Vitamin D3] Fluticasone Propionate Nasal 50 mcg NS DAILY 07/01/16 05/21/18 [Flonase] Furosemide [Lasix] 20 mg PO DAILY 07/01/16 05/21/18 Lisinopril [Zestril] 40 mg PO DAILY 07/01/16 05/21/18 Lurasidone HCl [Latuda] 120 mg PO DAILY 07/01/16 05/21/18 Metformin HCl [Fortamet] 1,000 mg PO BID 07/01/16 05/21/18 Potassium Chloride [Klor-Con 10 meq PO DAILY 07/01/16 05/21/18 Sprinkle] Testosterone Cypionate 200 mg IM Q2W 07/01/16 05/21/18 [Depo-Testosterone] Albuterol Sulfate [Albuterol 1 - 2 puff IH Q4HR PRN 07/02/17 05/21/18 Inhaler] Allopurinol [Zyloprim 100 MG] 200 mg PO DAILY 07/02/17 05/21/18 Tramadol HCl/Acetaminophen 1 tab PO Q6H PRN 07/02/17 05/21/18 [Ultracet Tablet] Citalopram Hydrobromide 20 mg PO DAILY 01/19/18 05/21/18 [Citalopram HBr] Divalproex (24 HR) [Depakote ER 1,500 mg PO HS 01/19/18 05/21/18 (24 HR)] Gabapentin [Neurontin] 300 mg PO TID 01/19/18 05/21/18 Hydralazine HCl 100 mg PO TID 01/19/18 05/21/18 Insulin DETEMIR [Levemir Flextouch] 30 units SQ BID 01/19/18 05/21/18 Colchicine [Colcrys] 0.6 mg PO DAILY 05/21/18 05/21/18 Insulin LISPRO [Humalog] 4 - 12 unit SQ TIDWM 05/21/18 05/21/18 Previous Rx's Medication Instructions Recorded amLODIPine [Norvasc] 5 mg PO DAILY 30 Days #30 tablet 01/22/18 Hydrocortisone 2.5% CREAM [Cortaid] 1 appl TP BID 7 Days #1 tube 02/27/18 Allergies/Adverse Reactions: Allergies Allergy/AdvReac Type Severity Reaction Status Date / Time influenza A (H1N1) virus Allergy Unknown Pt has Verified 02/27/18 12:43 vaccine 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 Denies: palpitations, dyspnea on exertion Respiratory: Denies: cough, dyspnea Gastrointestinal: Reports: diarrhea (has occasional diarrhea perhaps due to food allergies). Denies: abdominal pain, nausea, vomiting, constipation, hematemesis, melena, hematochezia Genitourinary: Denies: urgency, dysuria Musculoskeletal: Reports: neck pain (chronic, had a fusion), arthralgia (helped someone move this weekend), myalgia (helped someone move this weekend). Denies : joint swelling Neurological: Reports: headache (rear headache, gets botox injections for them, last botox one month ago) Psychiatric: Reports: other (bipolar disorder tx by Ilana Gallegos) Past Medical History - Past Medical History Medical history: Reports: non-contributory, coronary artery disease, diabetes, hyperlipidemia, hypertension, renal disease Surgical history: Reports: orthopedic, other (tip of his second toe on right foot removed for necrosis by Dr Ivey) Psychiatric history: Reports: anxiety, bipolar, depression, schizophrenia - Social History Smoking Status: Never smoker Smokeless Tobacco Status: No Alcohol use: Reports: none Drug use: Reports: none Physical Exam - General Limitations: no limitations General appearance: alert, in no apparent distress - Head Head exam: atraumatic, normocephalic - Eye Eye exam: Present: normal appearance, PERRL, EOMI. Absent: scleral icterus, conjunctival injection, nystagmus, miosis, mydriasis - ENT ENT exam: normal exam, normal oropharynx, mucous membranes moist - Chest Chest inspection: Present: normal inspection, symmetric chest wall rise. Absent : tenderness, rash - Respiratory Respiratory exam: Present: normal lung sounds bilaterally. Absent: respiratory distress, wheezes, accessory muscle use - Cardiovascular Cardiovascular exam: Present: regular rate, normal rhythm - Expanded Cardiovascular Exam Peripheral pulses: 2+: radial (R), radial (L), posterior tibialis (R), posterior tibialis (L) - Abdominal Exam Abdominal exam: Present: soft, Non-Tender, normal bowel sounds - Neurological Exam Neurological exam: Present: alert, oriented X3, CN II-XII intact - Expanded Neurological Exam Speech: Present: fluid speech Cranial nerves: EOM function (II, III, IV, ): Normal, facial sensation (V): Abnormal Left (decreased sensation due to GBS as a child), facial palsy (VII): Normal, spinal accessory function (XI): Normal, tongue deviation (XII): Normal Cerebellar function: finger to nose: Normal, heel to jean: Normal Motor strength - LUE: 5/5 Motor strength - RUE: 5/5 Motor strength - LLE: 5/5 Motor strength - RLE: 5/5 Upper motor neuron exam: pronator drift: Absent bilaterally Coma Scale Eye Opening: Spontaneous Coma Scale Motor Response: Obeys Commands Coma Scale Verbal Response: Oriented Coma Scale Total: 15 - Psychiatric Psychiatric exam: Present: normal affect, normal mood Course Course Narrative: Pt has been placed on stroke alert. Pt went to CT scan within five minutes and Radiologist called and stated that the scan was negative for a bleed. Basic labs will be drawn to check for any electrolyte or other abnormalities. [facility] Stroke Telemedicine recommended that the patient be admitted for TIA workup after their evaluation at the bedside. Vital Signs Temperature 98.8 F 05/21/18 14:03 Pulse Rate 62 05/21/18 14:03 Respiratory Rate 18 05/21/18 14:03 Blood Pressure 83/51 05/21/18 14:03 O2 Sat by Pulse Oximetry 97 05/21/18 14:03 Temperature 98.8 F 05/21/18 14:03 Pulse Rate 62 05/21/18 14:03 Respiratory Rate 18 05/21/18 14:03 Blood Pressure 83/51 05/21/18 14:03 O2 Sat by Pulse Oximetry 97 05/21/18 14:03 Oxygen Delivery Oxygen Delivery Room Air Neuro Symptoms/Deficit - MDM Narrative Medical decision making narrative: Pt still has lingering slurred speech, but no cerebellar ataxia with heel-to- jean or [id number]. His lab work was largely unremarkable and his head CT was negative for a bleed. He has several risk factors for atherosclerosis and will need to be brought into the hospital for a TIA workup in order to rule out ongoing ischemia and for modification of risk factors/lifestyle changes. He remained stable while in the department, received a regular aspirin to supplement his daily baby aspirin, and expressed no needs at this time. He was given an opportunity for questions and all of his stated concerns were addressed. - Differential Diagnosis Likely: transient cerebral ischemia - Medical Records Medical records reviewed: Yes I reviewed the patient's medical records. - Lab Data Lab results reviewed: Yes I reviewed the patient's lab results. Result diagrams: 05/21/18 14:08 05/21/18 14:08 Lab Results 05/21/18 05/21/18 05/21/18 Range/Units 14:08 14:08 14:08 WBC 6.8 (4.3-11.1) K/mcL RBC 4.41 (4.19-5.50) M/mcL Hgb 12.2 L (12.9-16.9) g/dL Hct 38.2 (37.5-50.1) % MCV 86.6 (83.0-100.0) fL MCH 27.7 L (28.0-33.3) pg MCHC 31.9 (31.6-35.5) g/dL RDW 14.7 H (11.5-14.5) % Plt Count 194 (140-400) K/mcL MPV 11.7 (9.4-12.4) fL Immature Gran % 0.4 (0-4) % Seg Neutrophils % 59.1 % Lymphocytes % 26.3 % Monocytes % 9.5 % Eosinophils % 3.7 % Basophils % 1.0 % Neutrophils # 4.0 (1.6-8.9) K/mcL Lymphocytes # 1.8 (0.6-4.6) K/mcL Monocytes # 0.6 (0.0-1.3) K/mcL Eosinophils # 0.3 (0.0-0.6) K/mcL Basophils # 0.1 (0.0-0.2) K/mcL PT 11.2 (9.4-12.1) Seconds INR 1.0 APTT 33.2 (26.0-36.0) Seconds Sodium 136 (136-145) mEq/L Potassium 5.4 H (3.5-5.1) mEq/L Chloride 108 H (98-107) mEq/L Carbon Dioxide 24 (23-29) mEq/L BUN 31 H (6-20) mg/dL Creatinine 1.65 H (0.70-1.30) mg/dL Est GFR ( Amer) 53 L (> 60) Est GFR (Non-Af Amer) 44 L (> 60) BUN/Creatinine Ratio 19 (6-26) Glucose 156 H (70-105) mg/dL Calculated Osmolality 292 (280-300) Calcium 8.7 (8.6-10.3) mg/dL Troponin I < 0.03 (< 0.04) ng/mL - Radiology Data Radiology results reviewed: Yes I reviewed the patient's radiology results. Head CT 05/21/18 14:08 IMPRESSION: 1. Stable chronic microvascular ischemic disease and mild frontotemporal atrophy. 2. No acute intracranial hemorrhage. Critical test results were called by Dr. Srinivas Silva MD to Dr. Shin On 05/21/2018 at 14:31. D/ / 05/21/2018 14:50:37 Srinivas Silva MD / bcarter Interpreting Provider: Srinivas Silva MD - EKG Data EKG attestation: Yes I reviewed and interpreted this EKG. EKG results narrative: HR 64, Rhythm sinus, axis normal. MN interval 201, QRS 111. No evidence of ST elevation or depression. Low voltage in precordial leads. NIH Stroke Scale - Level of Consciousness LOC: Alert - LOC Questions LOC Questions: Answers both correctly - LOC Commands LOC Commands: Performs both correctly - Best Gaze Best Gaze: Normal - Visual Visual: No visual loss - Facial Palsy Facial Palsy: Normal - Motor Arms Motor Arm-Left: No drift for 10 seconds Motor Arm-Right: No drift for 10 seconds - Motor Legs Motor Leg-Left: No drift for 5 seconds Motor Leg-Right: No drift for 5 seconds - Limb Ataxia Limb Ataxia: Present in TWO limbs - Sensory Sensory: Normal - Best Language Best Language: No aphasia - Dysarthria Dysarthria: Mild, slurs some words - Extinction and Inattention Extinction and Inattention: Normal - NIHSS Total Score NIHSS Total Score: 3 TPA Checklist - LKW: 3-4.5 hrs Add. Warnings/Precautions Patient/family understanding: The patient/family members have been counseled and understood the risk, benefit , and alternatives of treatment.
--- NOTE | 2018-05-21 14:20 | Emergency Department Note ---
Disposition Clinical Impression: Transient ischemic attack (TIA) Disposition: Admitted As Inpatient Condition: Good General Adult HPI - General Chief complaint: ED Neuro Symptoms/Deficit Stated complaint: slurred speech Time Seen by Provider: 05/21/18 14:06 Source: patient, family Limitations: no limitations Nursing Notes Reviewed: Yes Vital Signs Reviewed: Yes - History of Present Illness Pain Scale: 0 - Related Data Home Medications Medication Instructions Recorded Confirmed BuPROPion XL (24 HR) [Wellbutrin 300 mg PO QAM 04/16/15 05/21/18 Xl] Multivitamin/Iron/Folic Acid 1 tab PO DAILY 04/16/15 05/21/18 [Centrum Complete Multivit Tab] Pravastatin Sodium [Pravachol] 40 mg PO DAILY 04/16/15 05/21/18 ALPRAZolam [Xanax 0.5 MG Tablet] 0.5 mg PO TID PRN 07/01/16 05/21/18 Aspirin 81 mg PO DAILY 07/01/16 05/21/18 Carvedilol [Coreg] 12.5 mg PO BID 07/01/16 05/21/18 Cholecalciferol (Vitamin D3) 2,000 unit PO DAILY 07/01/16 05/21/18 [Vitamin D3] Fluticasone Propionate Nasal 50 mcg NS DAILY 07/01/16 05/21/18 [Flonase] Furosemide [Lasix] 20 mg PO DAILY 07/01/16 05/21/18 Lisinopril [Zestril] 40 mg PO DAILY 07/01/16 05/21/18 Lurasidone HCl [Latuda] 120 mg PO DAILY 07/01/16 05/21/18 Metformin HCl [Fortamet] 1,000 mg PO BID 07/01/16 05/21/18 Potassium Chloride [Klor-Con 10 meq PO DAILY 07/01/16 05/21/18 Sprinkle] Testosterone Cypionate 200 mg IM Q2W 07/01/16 05/21/18 [Depo-Testosterone] Albuterol Sulfate [Albuterol 1 - 2 puff IH Q4HR PRN 07/02/17 05/21/18 Inhaler] Allopurinol [Zyloprim 100 MG] 200 mg PO DAILY 07/02/17 05/21/18 Tramadol HCl/Acetaminophen 1 tab PO Q6H PRN 07/02/17 05/21/18 [Ultracet Tablet] Citalopram Hydrobromide 20 mg PO DAILY 01/19/18 05/21/18 [Citalopram HBr] Divalproex (24 HR) [Depakote ER 1,500 mg PO HS 01/19/18 05/21/18 (24 HR)] Gabapentin [Neurontin] 300 mg PO TID 01/19/18 05/21/18 Hydralazine HCl 100 mg PO TID 01/19/18 05/21/18 Insulin DETEMIR [Levemir Flextouch] 30 units SQ BID 01/19/18 05/21/18 Colchicine [Colcrys] 0.6 mg PO DAILY 05/21/18 05/21/18 Insulin LISPRO [Humalog] 4 - 12 unit SQ TIDWM 05/21/18 05/21/18 Previous Rx's Medication Instructions Recorded amLODIPine [Norvasc] 5 mg PO DAILY 30 Days #30 tablet 01/22/18 Hydrocortisone 2.5% CREAM [Cortaid] 1 appl TP BID 7 Days #1 tube 02/27/18 Allergies Allergy/AdvReac Type Severity Reaction Status Date / Time influenza A (H1N1) virus Allergy Unknown Pt has Verified 02/27/18 12:43 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 Allergy Difficulty Verified 02/27/18 12:43 Breathing msg Allergy Difficulty Uncoded 02/27/18 12:43 Swallowing Past Medical History - Past Medical History Medical history: Reports: non-contributory, diabetes, hypertension Surgical history: Reports: orthopedic, other Psychiatric history: Reports: anxiety, bipolar, depression, schizophrenia - Social History Smoking Status: Never smoker Smokeless Tobacco Status: No Alcohol use: Reports: none Drug use: Reports: none Physical Exam - General Limitations: no limitations General appearance: alert, in no apparent distress Course Vital Signs Temperature 98.8 F 05/21/18 14:03 Pulse Rate 62 05/21/18 14:03 Respiratory Rate 18 05/21/18 14:03 Blood Pressure 83/51 05/21/18 14:03 O2 Sat by Pulse Oximetry 97 05/21/18 14:03 Temperature 98.8 F 05/21/18 17:37 Pulse Rate 62 05/21/18 17:49 Respiratory Rate 20 05/21/18 17:49 Blood Pressure 130/74 05/21/18 17:49 O2 Sat by Pulse Oximetry 97 05/21/18 17:37 Oxygen Delivery Oxygen Delivery Room Air Medical Decision Making - MDM Narrative Medical decision making narrative: Head CT 05/21/18 14:08 IMPRESSION: 1. Stable chronic microvascular ischemic disease and mild frontotemporal atrophy. 2. No acute intracranial hemorrhage. Critical test results were called by Dr. Srinivas Silva MD to Dr. Shin On 05/21/2018 at 14:31. D/ / Srinivas Silva MD / Srinivas Silva MD Interpreting Provider: Srinivas Silva MD 1445 hrs.: Patient was evaluated by the stroke neurologist at [facility] using the tele-neurology system. They agreed that patient did not qualify for TPA. Admit for workup of TIA. Recommended aspirin which the patient's chronic at lab work and then admission here. Patient's in agreement with the plan. - Lab Data Result diagrams: 05/21/18 14:08 05/21/18 14:08 Lab Results 05/21/18 05/21/18 05/21/18 Range/Units 14:08 14:08 14:08 WBC 6.8 (4.3-11.1) K/mcL RBC 4.41 (4.19-5.50) M/mcL Hgb 12.2 L (12.9-16.9) g/dL Hct 38.2 (37.5-50.1) % MCV 86.6 (83.0-100.0) fL MCH 27.7 L (28.0-33.3) pg MCHC 31.9 (31.6-35.5) g/dL RDW 14.7 H (11.5-14.5) % Plt Count 194 (140-400) K/mcL MPV 11.7 (9.4-12.4) fL Immature Gran % 0.4 (0-4) % Seg Neutrophils % 59.1 % Lymphocytes % 26.3 % Monocytes % 9.5 % Eosinophils % 3.7 % Basophils % 1.0 % Neutrophils # 4.0 (1.6-8.9) K/mcL Lymphocytes # 1.8 (0.6-4.6) K/mcL Monocytes # 0.6 (0.0-1.3) K/mcL Eosinophils # 0.3 (0.0-0.6) K/mcL Basophils # 0.1 (0.0-0.2) K/mcL PT 11.2 (9.4-12.1) Seconds INR 1.0 APTT 33.2 (26.0-36.0) Seconds Sodium 136 (136-145) mEq/L Potassium 5.4 H (3.5-5.1) mEq/L Chloride 108 H (98-107) mEq/L Carbon Dioxide 24 (23-29) mEq/L BUN 31 H (6-20) mg/dL Creatinine 1.65 H (0.70-1.30) mg/dL Est GFR ( Amer) 53 L (> 60) Est GFR (Non-Af Amer) 44 L (> 60) BUN/Creatinine Ratio 19 (6-26) Glucose 156 H (70-105) mg/dL Calculated Osmolality 292 (280-300) Calcium 8.7 (8.6-10.3) mg/dL Troponin I < 0.03 (< 0.04) ng/mL TSH 2.793 (0.340-5.600) mcIU/mL Critical Care Time Critical Care Time: Yes Total Critical Care Time: 20 Attestation: Excluding a separately billable procedures. Attestation Statement - Attestation Attestation: This documentation is done with the assistance of Dragon dictation. Despite efforts made to ensure accuracy, there may be inaccuracies in mathematician research or spelling and typographical errors. I examined this patient and my medical decision-making was reviewed with the Resident Physician. I agree with the documented findings, disposition and treatment plan as described except to the extent set forth below. Patient seen and evaluated on arrival by Dr. Shin and myslef; I agree with her evaluation management plan, supervise care the patient's stay. Patient presents today from home with family. He woke up today feeling okay in the last hour he has slurring of his speech and some ataxia. His fiance says that he was veering off to the side when he was walking in the store. He denies any headache any falls no vision changes. He said he had a similar feeling a while back which is about 2 years ago when he had low sodium. Patient denies any headache at this time. He states he feels better when he is laying down when he stands up that is when he feels worse. He said his weakness is bilateral. On exam here, he is is a 2 or 3. He was called as a stroke alert. We will get a CT and then do the tele-neurology evaluation.
[2018-05-21 14:31] LABS: Basophils # 0.1 K/mcL (0.0-0.2); Eosinophils # 0.3 K/mcL (0.0-0.6); Eosinophils % 3.7 %; Hematocrit 38.2 % (37.5-50.1); Hemoglobin 12.2 g/dL (12.9-16.9); Immature Granulocytes % 0.4 % (0-4); Lymphocytes # 1.8 K/mcL (0.6-4.6); Lymphocytes % 26.3 %; Mean Corpuscular HGB Conc 31.9 g/dL (31.6-35.5); Mean Corpuscular Hemoglobin 27.7 pg (28.0-33.3); Mean Corpuscular Volume 86.6 fL (83.0-100.0); Mean Platelet Volume 11.7 fL (9.4-12.4); Monocytes # 0.6 K/mcL (0.0-1.3); Monocytes % 9.5 %; Platelet Count 194 K/mcL (140-400); Red Blood Count 4.41 M/mcL (4.19-5.50); Red Cell Distribution Width 14.7 % (11.5-14.5); Segmented Neutrophils % 59.1 %
[2018-05-21] MEDS ORDERED: Aspirin 325 MG TABLET PO ONE (14:42)
[2018-05-21 14:45] LABS: Prothrombin Time 11.2 Seconds (9.4-12.1)
[2018-05-21 14:47] LABS: BUN/Creatinine Ratio 19 (6-26); Blood Urea Nitrogen 31 mg/dL (6-20); Calcium 8.7 mg/dL (8.6-10.3); Carbon Dioxide 24 mEq/L (23-29); Chloride 108 mEq/L (98-107); Glucose 156 mg/dL (70-105); Osmolality,Calculated 292 (280-300); Potassium 5.4 mEq/L (3.5-5.1); Sodium 136 mEq/L (136-145); eGFR For Non-African Americans 44 (> 60)
[2018-05-21 14:48] LABS: Activated Partial Thrombo Time 33.2 Seconds (26.0-36.0); Troponin I < 0.03 ng/mL (< 0.04)
[2018-05-21] MEDS ORDERED: ALPRAZolam 0.5 MG TABLET PO PRN (15:52)
[2018-05-21] MEDS ORDERED: Dextrose Gel 15 GM/37.5 ML TUBE PO PRN ×2 (15:59)
[2018-05-21] MEDS ORDERED: D5% in Water 1,000 ML IVC PRN (15:59)
[2018-05-21] MEDS ORDERED: *HR* Dextrose 50 % in Water (Syg) 50 ML SYRINGE IVP PRN (15:59)
[2018-05-21] MEDS ORDERED: Acetaminophen 325 MG TABLET PO PRN (16:01)
[2018-05-21] MEDS ORDERED: traMADol 50 MG TABLET PO PRN (16:01)
[2018-05-21] MEDS ORDERED: Naloxone 0.4 MG/ML INJ IVP PRN (16:01)
--- NOTE | 2018-05-21 16:19 | Internal Med History&Physical ---
Date of Encounter: 05/21/18 Time of Encounter: 15:30 Internal Medicine - H&P: HPI Chief complaint: Neuro deficits Admitted From: Emergency Dept Plans for Post Hospital Care: Home History of present illness: Mr. Sullivan is a 52 year old male w/PMH of CAD, diabetes controlled with oral medications and insulin, HLD, HTN, and CK D presents with chief complaint of neuro deficits that began today. Patient reports difficulty walking and slurred speech. Patient reports similar symptoms one blood glucose is low or sodium is low. Pt. had recent Echocardiogram and stress test on 01/20/18. Echo showed LVEF of 60%, mild concentric left ventricular hypertrophy, mild left ventricular diastolic dysfunction, normal right ventricular structure and function, no significant valvular dysfunction, and no pulmonary hypertension. Pts. sx resolved by exam in ED. Pt. denies recent illness, fever, chills, nausea , vomiting, headache, changes in vision, unusual bleeding, abdominal pain, chest pain, shortness of breath, cough, chest congestion, diarrhea, constipation , numbness, tingling, pre-syncope, or syncope. Past Med Surg Social Fam HX - Past Medical History Source: patient, old records reviewed, obtained from family Medical history: coronary artery disease, diabetes, hyperlipidemia, hypertension , renal disease Additional medical history: bipolar, schizophrenia, Anxiety , depression, back sx, guillian barre, Psychiatric history: anxiety, bipolar, depression, schizophrenia - Past Surgical History Surgical History: orthopedic, other (tip of his second toe on right foot removed for necrosis by Dr Ivey) Additional surgical history: tonsils removed, neck fusion, on right foot 2nd digit toe removed. - Social History Smoking Status: Never smoker Smokeless Tobacco Status: No Alcohol use: none Drug use: none Current living situation: Home, With Family Activity Level: Independent ambulation Recent Out of Country Travel Within the Last 8 Weeks: No Exposure or Possible Exposure to Illness During Travel: No - Family History Father Race: Family Member Ethnicity: Non- Living Status: Age at : 73 Cause of : Pancreatic cancer Hx Family Cancer: Yes (Pancreatic) Mother Race: Family Member Ethnicity: Non- Living Status: Still Living Hx Family Endocrine Disorder: Yes (DM) Brother Race: Family Member Ethnicity: Non- Living Status: Still Living Hx Family Cardiac Disorders: Yes (HTN) Internal Medicine - H&P: Meds BuPROPion XL (24 HR) [Wellbutrin Xl] 300 mg PO QAM 04/16/15 [History] Multivitamin/Iron/Folic Acid [Centrum Complete Multivit Tab] 1 tab PO DAILY [History] Pravastatin Sodium [Pravachol] 40 mg PO DAILY 04/16/15 [History] ALPRAZolam [Xanax 0.5 MG Tablet] 0.5 mg PO TID PRN 07/01/16 [History] Aspirin 81 mg PO DAILY 07/01/16 [History] Carvedilol [Coreg] 12.5 mg PO BID 07/01/16 [History] Cholecalciferol (Vitamin D3) [Vitamin D3] 2,000 unit PO DAILY 07/01/16 [History] Fluticasone Propionate Nasal [Flonase] 50 mcg NS DAILY 07/01/16 [History] Furosemide [Lasix] 20 mg PO DAILY 07/01/16 [History] Lisinopril [Zestril] 40 mg PO DAILY 07/01/16 [History] Lurasidone HCl [Latuda] 120 mg PO DAILY 07/01/16 [History] Metformin HCl [Fortamet] 1,000 mg PO BID 07/01/16 [History] Potassium Chloride [Klor-Con Sprinkle] 10 meq PO DAILY 07/01/16 [History] Testosterone Cypionate [Depo-Testosterone] 200 mg IM Q2W 07/01/16 [History] Albuterol Sulfate [Albuterol Inhaler] 1 - 2 puff IH Q4HR PRN 07/02/17 [History] Allopurinol [Zyloprim 100 MG] 200 mg PO DAILY 07/02/17 [History] Tramadol HCl/Acetaminophen [Ultracet Tablet] 1 tab PO Q6H PRN 07/02/17 [History] Citalopram Hydrobromide [Citalopram HBr] 20 mg PO DAILY 01/19/18 [History] Divalproex (24 HR) [Depakote ER (24 HR)] 1,500 mg PO HS 01/19/18 [History] Gabapentin [Neurontin] 300 mg PO TID 01/19/18 [History] Hydralazine HCl 100 mg PO TID 01/19/18 [History] Insulin DETEMIR [Levemir Flextouch] 30 units SQ BID 01/19/18 [History] amLODIPine [Norvasc] 5 mg PO DAILY 30 Days #30 tablet 01/22/18 [Rx] Hydrocortisone 2.5% CREAM [Cortaid] 1 appl TP BID 7 Days #1 tube 02/27/18 [Rx] Colchicine [Colcrys] 0.6 mg PO DAILY 05/21/18 [History] Insulin LISPRO [Humalog] 4 - 12 unit SQ TIDWM 05/21/18 [History] 3 Allergy/AdvReac Type Severity Reaction Status Date / Time influenza A (H1N1) virus Allergy Unknown Pt has Verified 02/27/18 12:43 vaccine m-[place]-split 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 - Constitutional Constitutional: as per HPI, no chills, no fever(s), no night sweats - EENT Eyes: no change in vision, no discharge, no pain, no photophobia Ears: no ear discharge, no ear pain, no tinnitus Nose, mouth and throat: no dysphagia, no nasal discharge, no neck pain, no sore throat - Breasts Breasts: as per HPI - Cardiovascular Cardiovascular ROS IM: as per HPI, lightheadedness, no chest pain, no diaphoresis, no dyspnea, no palpitations, no syncope - Respiratory Respiratory: as per HPI, no cough, no dyspnea, no wheezing, no excessive phlegm production - Gastrointestinal Gastrointestinal: no abdominal pain, no diarrhea, no hematemesis, no hematochezia, no melena, no nausea, no vomiting - Genitourinary Genitourinary ROS male: as per HPI - Musculoskeletal Musculoskeletal ROS IM: no numbness, no tingling - Integumentary Integumentary IM: no rash, no unusual bruising - Neurological Neurological ROS: as per HPI, abnormal speech (Prior to coming to ED), dizziness , lack of coordination (Prior to coming to ED), no confusion, no convulsions, no focal weakness, no numbness, no tingling, no tremor(s) - Psychiatric Psychiatric: as per HPI, anxiety, depression, other (schizophrenia) - Endocrine Endocrine IM: as per HPI - Hematologic/Lymphatic Hematologic/Lymphatic: no easy bruising - Allergic/Immunologic Allergic/Immunologic: as per HPI - Constitutional Vitals: Temp Pulse Resp BP Pulse Ox 98.8 F 63 18 108/65 97 05/21/18 14:03 05/21/18 15:35 05/21/18 15:35 05/21/18 15:35 05/21/18 15:35 General appearance: Present: cooperative, A&O X 3, morbidly obese, pleasant, no acute distress, answers questions appropriately Exam: Patient examined at bedside in ED. Pt. resting in bed. Denies any neuro sx since arrival. Neuro exam shows no deficits, no pronator drift, no facial droop , or slurred speech. UE and LE strengths equal bilaterally. Pt. denies any other complaints at this time. VS: 98.8F temp, HR 63, RR 18, BP 108/65, 97% SpO2 on RA. - Head Head exam: Present: atraumatic, normocephalic - Eye Eye exam: Present: PERRL, conjuntiva pink, sclera anicteric Pupils: Present: PERRL - ENT ENT exam: Present: normal exam - Neck Neck exam general surgery: Present: supple, trachea midline. Absent: lymphadenopathy - Respiratory Respiratory exam: Present: CTAB. Absent: accessory muscle use, rales, rhonchi, wheezes - Cardiovascular Cardiovascular exam: Present: RRR, +S1, +S2. Absent: diastolic murmur, gallop, rubs, systolic murmur - GI/Abdominal GI/Abdominal exam: Present: normal bowel sounds, soft, no peritoneal signs. Absent: distended, tenderness - Rectal Rectal exam: Present: deferred - Additional comments: exam deferred. - Extremities Exam Extremities exam: Present: warm, radial pulses palpable and symmetrical. Absent : calf tenderness, cyanotic, pedal edema - Back Exam Back exam: Present: normal inspection - Neurological Exam Neurological exam: Present: alert, CN II-XII intact, oriented X3, no focal deficits. Absent: pronater drift, facial droop, speech deficit - Psychiatric Psychiatric exam: Present: normal affect, normal mood - Skin Skin exam: Present: dry, intact Internal Med - H&P Results - Labs CBC & Chem 7: 05/21/18 14:08 05/21/18 14:08 Labs: Short CBC 05/21/18 Range/Units 14:08 WBC 6.8 (4.3-11.1) K/mcL Hgb 12.2 L (12.9-16.9) g/dL Hct 38.2 (37.5-50.1) % Plt Count 194 (140-400) K/mcL Neutrophils # 4.0 (1.6-8.9) K/mcL BMP 05/21/18 14:08 Sodium 136 Potassium 5.4 H Chloride 108 H Carbon Dioxide 24 BUN 31 H Creatinine 1.65 H Glucose 156 H Calcium 8.7 Cardiac Enzymes 05/21/18 Range/Units 14:08 Troponin I < 0.03 (< 0.04) ng/mL - EKG Data EKG shows normal: sinus rhythm - EKG Data Prior EKG available for review: yes EKG comments: 05/21/18 16:36 EKG dated 01/19/18 shows sinus rhythm and nonspecific T-wave abnormality. EKG dated 05/21/18 shows sinus rhythm with low voltage in precordial leads and baseline wander in lead V3. - Impressions ITS Impressions Head CT 05/21/18 14:08 IMPRESSION: 1. Stable chronic microvascular ischemic disease and mild frontotemporal atrophy. 2. No acute intracranial hemorrhage. Critical test results were called by Dr. Srinivas Silva MD to Dr. Shin On 05/21/2018 at 14:31. D/ : / 05/21/2018 14:50:37 Srinivas Silva MD / katia Interpreting Provider: Srinivas Silva MD - Diagnostic Studies CT scan - head Additional comments: Impressions Head CT 05/21/18 14:08 IMPRESSION: 1. Stable chronic microvascular ischemic disease and mild frontotemporal atrophy. 2. No acute intracranial hemorrhage. Critical test results were called by Dr. Srinivas Silva MD to Dr. Shin On 05/21/2018 at 14:31. D/ / 05/21/2018 14:50:37 Srinivas Silva MD / katia Interpreting Provider: Srinivas Silva MD - Assessment and plan (1) Transient ischemic attack (TIA) Current Visit: Yes Status: Acute Assessment and plan: Acute TIA sx today w/difficulty ambulating and slurred speech. Patient reports similar symptoms one blood glucose is low or sodium is low. Pt. had recent Echocardiogram and stress test on 01/20/18. Echo showed LVEF of 60%, mild concentric left ventricular hypertrophy, mild left ventricular diastolic dysfunction, normal right ventricular structure and function, no significant valvular dysfunction, and no pulmonary hypertension. Pts. sx resolved by exam in ED. CT of the head shows stable chronic microvascular ischemic disease and mild frontotemporal atrophy and no acute intracranial hemorrhage. Initial troponin <0.03. Trend troponins. Continuous cardiac telemetry. ASA. NIHSS modified. Padding to bed rails. Timed neuro checks. Elevate HOB. NPO until dysphagia screen passed. MRI of head/brain ordered to r/o infarct/ischemia. Hold HTN medications to allow for permissive HTN until MRI results available. Consider Neurology consult if MRI results abnormal. Pt. is moderate risk for further morbidity and complications d/t transient neuro sx, CT of the head showing stable chronic microvascular ischemic disease and mild frontotemporal atrophy, current morbid obesity; and risk factors of CAD, HTN, HLD, CKD. Observation. (2) Hyperkalemia Current Visit: Yes Status: Acute Assessment and plan: Acute hyperkalemia w/potassium of 5.4 on admission. Will hold pts. PO potassium and re-check at 00:00. Continuous cardiac telemetry. (3) Dizziness Current Visit: Yes Status: Acute Assessment and plan: Acute dizziness w/neuro sx. Bilateral carotid Dopplers ordered. Orthostatic BPs and VS. Falls/safety precautions. Up with assist only. (4) CAD (coronary artery disease) Current Visit: Yes Status: Chronic Assessment and plan: Hx of chronic CAD. Continuous cardiac telemetry. ASA. Continue HLD medication but hold HTN medications to allow for permissive HTN until MRI of head/brain results are available. Qualifiers: Coronary Disease-Associated Artery/Lesion type: unspecified vessel or lesion type [place] vs. transplanted heart: [place] heart Associated angina: angina presence unspecified Qualified Code(s): I25.10 - Atherosclerotic heart disease of [place] coronary artery without angina pectoris (5) HLD (hyperlipidemia) Current Visit: Yes Status: Chronic Assessment and plan: Hx of chronic HLD. Lipid panel in a.m. labs. Continue pts. Pravastatin. Qualifiers: Hyperlipidemia type: pure hypercholesterolemia Qualified Code(s): E78.00 - Pure hypercholesterolemia, unspecified; E78.0 - Pure hypercholesterolemia (6) HTN (hypertension) Current Visit: Yes Status: Chronic Assessment and plan: Hx of chronic HTN. Will hold pts. HTN medications to allow for permissive HTN until MRI results are available. Qualifiers: Hypertension type: essential hypertension Qualified Code(s): I10 - Essential (primary) hypertension (7) CKD stage 3 secondary to diabetes Current Visit: Yes Status: Chronic Assessment and plan: Hx of CKD. Currently stage 3 w/GFR of 44 and creatinine of 1.65. Will use IV fluids judiciously if warranted. Avoid nephrotoxins. Monitor I&O and daily weight. (8) Diabetes mellitus Current Visit: Yes Status: Chronic Assessment and plan: Hx of chronic diabetes controlled by oral antihyperglycemic medications and insulin. Continue patient's insulin, hold metformin, and add low-dose correction sliding scale insulin with hypoglycemic protocol. BG checks before meals at bedtime. A1c in a.m. labs. Qualifiers: Diabetes mellitus type: type 2 Diabetes mellitus alf insulin use: with alf use Diabetes mellitus complication status: with neurologic complications Diabetes mellitus complication detail: with unspecified neuropathy Qualified Code(s): E11.40 - Type 2 diabetes mellitus with diabetic neuropathy, unspecified; Z79.4 - nursing home (current) use of insulin (9) DVT prophylaxis Current Visit: Yes Status: Acute Assessment and plan: Bilateral SCDs on LEs for DVT prophylaxis. - Time Spent With Patient Total time spent is greater than 50% in coordination of care (as documented) at patient's floor/unit and/or counseling patient: Greater than 35 minutes
[2018-05-21 17:14] LABS: Thyroid Stimulating Hormone 2.793 mcIU/mL (0.340-5.600)
[2018-05-21] MEDS: Insulin LISPRO 300 UNITS/3 ML VIAL SQ SCH (18:47)
[2018-05-21] MEDS ORDERED: Divalproex (24 HR) 500 MG TABLET PO SCH (21:00)
[2018-05-21] MEDS ORDERED: Insulin LISPRO 300 UNITS/3 ML VIAL SQ SCH (21:00)
[2018-05-21] MEDS: Gabapentin 300 MG CAPSULE PO SCH (21:23)
[2018-05-21] MEDS: Insulin DETEMIR 100 UNIT/ML X5UNITS SQ SCH (21:24)
[2018-05-22 01:01] LABS: Basophils # 0.1 K/mcL (0.0-0.2); Basophils % 0.7 %; Eosinophils # 0.3 K/mcL (0.0-0.6); Eosinophils % 4.5 %; Hematocrit 39.3 % (37.5-50.1); Hemoglobin 12.6 g/dL (12.9-16.9); Immature Granulocytes % 0.4 % (0-4); Lymphocytes # 2.4 K/mcL (0.6-4.6); Lymphocytes % 33.1 %; Mean Corpuscular HGB Conc 32.1 g/dL (31.6-35.5); Mean Corpuscular Hemoglobin 27.8 pg (28.0-33.3); Mean Corpuscular Volume 86.8 fL (83.0-100.0); Mean Platelet Volume 11.4 fL (9.4-12.4); Monocytes # 0.8 K/mcL (0.0-1.3); Monocytes % 10.7 %; Neutrophils # 3.6 K/mcL (1.6-8.9); Platelet Count 193 K/mcL (140-400); Red Blood Count 4.53 M/mcL (4.19-5.50); Red Cell Distribution Width 14.9 % (11.5-14.5); Segmented Neutrophils % 50.6 %
[2018-05-22 01:20] LABS: Calcium 8.9 mg/dL (8.6-10.3); Chol/HDL Ratio 3.3 (0-4.9); Potassium 4.2 mEq/L (3.5-5.1)
[2018-05-22 07:21] VITALS: BP 158/94
[2018-05-22 08:55] LABS: Estimated Average Glucose 128 mg/dl; Hemoglobin A1C 6.1 %
[2018-05-22] MEDS ORDERED: Aspirin 81 MG TAB.CHEW PO SCH (09:00)
[2018-05-22] MEDS ORDERED: Furosemide 20 MG TABLET PO SCH (09:00)
[2018-05-22] MEDS ORDERED: Fluticasone Propionate Nasal 50 MCG/SPRAY BOTTLE NS SCH (09:00)
[2018-05-22] MEDS ORDERED: Cholecalciferol (D-3) 1,000 UNIT TABLET PO SCH (09:00)
[2018-05-22] MEDS ORDERED: Colchicine 0.6 MG TABLET PO SCH (09:00)
[2018-05-22] MEDS: Gabapentin 300 MG CAPSULE PO SCH (09:10)
[2018-05-22] MEDS: Insulin LISPRO 300 UNITS/3 ML VIAL SQ SCH ×2 (09:11→16:19)
[2018-05-22] MEDS: Insulin DETEMIR 100 UNIT/ML X5UNITS SQ SCH (09:13)
--- NOTE | 2018-05-22 15:48 | Internal Med Progress Note ---
Hospitalist Progress Note - Encounter Date of Encounter: 05/22/18 - Subjective Interval History: Patient seen and examined this morning. No acute overnight events. Feeling well. Denies weakness, numbness, vision, speech or gait problem. Denies headache , chest pain, sob or abdominal pain. - Exam Vitals: Temp Pulse Resp BP Pulse Ox 98.2 F 67 16 158/94 98 05/22/18 07:18 05/22/18 07:18 05/22/18 07:18 05/22/18 07:18 05/22/18 02:40 Exam: Gen: Alert, oriented, In no acute distress. Morbidly obese. Respiratory exam: CTAB. no accessory muscle use, rales, rhonchi, wheezes Cardiovascular exam: RRR, +S1, +S2. no murmur, gallop, rubs. GI/Abdominal exam: Non-tender, Non-distended, normal bowel sounds, soft, no peritoneal signs. Extremities exam: full ROM, no pedal edema, warm, pulses palpable and symmetrical in both Upper and lower extremities. no calf tenderness, cyanotic Neurological exam: CN II-XII intact, AO X3, no focal deficits. no pronater drift , facial droop, speech deficit Skin exam: No skin rash, ulcer, purpura or ecchymosis. - Assessment and Plan (1) DVT prophylaxis Current Visit: Yes Status: Acute (2) Diabetes mellitus Current Visit: Yes Status: Chronic (3) CKD stage 3 secondary to diabetes Current Visit: Yes Status: Chronic (4) Transient ischemic attack (TIA) Current Visit: Yes Status: Acute (5) CAD (coronary artery disease) Current Visit: Yes Status: Chronic (6) HLD (hyperlipidemia) Current Visit: Yes Status: Chronic (7) HTN (hypertension) Current Visit: Yes Status: Chronic (8) Dizziness Current Visit: Yes Status: Acute (9) Hyperkalemia Current Visit: Yes Status: Acute - Time Spent with Patient Total time spent is greater than 50% in coordination of care (as documented) at patient's floor/unit and/or counseling patient: Internal Medicine: Result - Labs CBC & Chem 7: 05/22/18 00:46 05/22/18 00:46 Labs: Short CBC 05/22/18 Range/Units 00:46 WBC 7.1 (4.3-11.1) K/mcL Hgb 12.6 L (12.9-16.9) g/dL Hct 39.3 (37.5-50.1) % Plt Count 193 (140-400) K/mcL Neutrophils # 3.6 (1.6-8.9) K/mcL BMP 05/22/18 05/22/18 00:46 00:46 Sodium 137 Potassium 4.2 4.2 Chloride 108 H Carbon Dioxide 23 BUN 30 H Creatinine 1.60 H Glucose 91 Calcium 8.9 Cardiac Enzymes 05/21/18 05/22/18 Range/Units 21:05 03:49 Troponin I < 0.03 < 0.03 (< 0.04) ng/mL - ABG Interpretation ABG results: PT/INR, D-dimer PT 11.2 Seconds (9.4-12.1) 05/21/18 14:08 - Stroke Contraindication Rehab Services Not Assessed: Symptoms Resolved Consult Discharge Plan - Plan Instructions: Transient Ischemic Attack (DC), Transient Ischemic Attack (GEN) (2) Diabetes mellitus Qualifiers: Diabetes mellitus type: type 2 Diabetes mellitus fpc insulin use: with fpc use Diabetes mellitus complication status: with neurologic complications Diabetes mellitus complication detail: with unspecified neuropathy Qualified Code(s): E11.40 - Type 2 diabetes mellitus with diabetic neuropathy, unspecified; Z79.4 - senior care (current) use of insulin (5) CAD (coronary artery disease) Qualifiers: Coronary Disease-Associated Artery/Lesion type: unspecified vessel or lesion type [place] vs. transplanted heart: [place] heart Associated angina: angina presence unspecified Qualified Code(s): I25.10 - Atherosclerotic heart disease of [place] coronary artery without angina pectoris (6) HLD (hyperlipidemia) Qualifiers: Hyperlipidemia type: pure hypercholesterolemia Qualified Code(s): E78.00 - Pure hypercholesterolemia, unspecified; E78.0 - Pure hypercholesterolemia (7) HTN (hypertension) Qualifiers: Hypertension type: essential hypertension Qualified Code(s): I10 - Essential (primary) hypertension
--- NOTE | 2018-05-22 15:52 | Discharge Summary ---
- NOTES TO OUTPATIENT PROVIDER Notes to Outpatient Provider: Patient has CKD 3 with creatinine of 1.6. Metformin stopped given HbA1c of 6.1 and patient on insulin. MRI negative for stroke. Symptoms likely related to hypoglycemia. TIA workup negative. f/u renal function and electrolytes closely. 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 transplanted heart: [place] heart Associated angina: angina presence unspecified Qualified Code(s): I25.10 - Atherosclerotic heart disease of [place] coronary artery without angina pectoris (6) HLD (hyperlipidemia) Priority: Secondary Status: Chronic Qualifiers: Hyperlipidemia type: pure hypercholesterolemia Qualified Code(s): E78.00 - Pure hypercholesterolemia, unspecified; E78.0 - Pure hypercholesterolemia (7) HTN (hypertension) Priority: Secondary Status: Chronic Qualifiers: Hypertension type: essential hypertension Qualified Code(s): I10 - Essential (primary) hypertension (8) Dizziness Priority: Secondary Status: Acute (9) Hyperkalemia Priority: Secondary Status: Acute Hospital course: Mr. Sullivan is a 53 year old male past medical history of CAD, diabetes on insulin , HLD, HTN, CK-MB was admitted for possible TIA. CT had an MRI was negative for acute stroke. Recent echo with EF of 60% with mild LVH and mild diastolic dysfunction. Carotid echo unremarkable. Telemetry unremarkable. Patient's blood sugar was 69 on admission. Patient reportedly had similar symptoms of ' wobbly gait' before when he had hypoglycemia which made him come to the hospital this time as well. Given current symptoms is insulin regimen was decreased and metformin was discontinued. HbA1c of 6.1. Patient insistent on going home. Patient asymptomatic during hospital stay. Patient is stable to be discharged and follow up with PCP within a week. Renal function to be monitored closely. - Time Spent with Patient Total time spent providing and/or coordinating discharge services: Greater than 30 minutes - Discharge Medications Home Medications: BuPROPion XL (24 HR) [Wellbutrin Xl] 300 mg PO QAM 04/16/15 [History] Multivitamin/Iron/Folic Acid [Centrum Complete Multivit Tab] 1 tab PO DAILY [History] Pravastatin Sodium [Pravachol] 40 mg PO DAILY 04/16/15 [History] ALPRAZolam [Xanax 0.5 MG Tablet] 0.5 mg PO TID PRN 07/01/16 [History] Aspirin 81 mg PO DAILY 07/01/16 [History] Carvedilol [Coreg] 12.5 mg PO BID 07/01/16 [History] Cholecalciferol (Vitamin D3) [Vitamin D3] 2,000 unit PO DAILY 07/01/16 [History] Fluticasone Propionate Nasal [Flonase] 50 mcg NS DAILY 07/01/16 [History] Furosemide [Lasix] 20 mg PO DAILY 07/01/16 [History] Lisinopril [Zestril] 40 mg PO DAILY 07/01/16 [History] Lurasidone HCl [Latuda] 120 mg PO DAILY 07/01/16 [History] Potassium Chloride [Klor-Con Sprinkle] 10 meq PO DAILY 07/01/16 [History] Testosterone Cypionate [Depo-Testosterone] 200 mg IM Q2W 07/01/16 [History] Albuterol Sulfate [Albuterol Inhaler] 1 - 2 puff IH Q4HR PRN 07/02/17 [History] Allopurinol [Zyloprim 100 MG] 200 mg PO DAILY 07/02/17 [History] Tramadol HCl/Acetaminophen [Ultracet Tablet] 1 tab PO Q6H PRN 07/02/17 [History] Citalopram Hydrobromide [Citalopram HBr] 20 mg PO DAILY 01/19/18 [History] Divalproex (24 HR) [Depakote ER (24 HR)] 1,500 mg PO HS 01/19/18 [History] Gabapentin [Neurontin] 300 mg PO TID 01/19/18 [History] Hydralazine HCl 100 mg PO TID 01/19/18 [History] amLODIPine [Norvasc] 5 mg PO DAILY 30 Days #30 tablet 01/22/18 [Rx] Hydrocortisone 2.5% CREAM [Cortaid] 1 appl TP BID 7 Days #1 tube 02/27/18 [Rx] Colchicine [Colcrys] 0.6 mg PO DAILY 05/21/18 [History] Insulin LISPRO [Humalog] 4 - 12 unit SQ TIDWM 05/21/18 [History] Insulin DETEMIR [Levemir Flextouch] 25 units SQ BID #0 05/22/18 [Rx] Allergies/Adverse Reactions: 3 Allergy/AdvReac Type Severity Reaction Status Date / Time influenza A (H1N1) virus Allergy Unknown Pt has Verified 02/27/18 12:43 vaccine m-[place]-split 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 Morbidly obese. Respiratory exam: CTAB. no accessory muscle use, rales, rhonchi, wheezes Cardiovascular exam: RRR, +S1, +S2. no murmur, gallop, rubs. GI/Abdominal exam: Non-tender, Non-distended, normal bowel sounds, soft, no peritoneal signs. Extremities exam: full ROM, no pedal edema, warm, pulses palpable and symmetrical in both Upper and lower extremities. no calf tenderness, cyanotic Neurological exam: CN II-XII intact, AO X3, no focal deficits. no pronater drift , facial droop, speech deficit Skin exam: No skin rash, ulcer, purpura or ecchymosis. - Patient Status Disposition: Home, Self-Care - Discharge Instructions Instructions: Transient Ischemic Attack (DC), Transient Ischemic Attack (GEN) Follow Up With: Crystal Noonan CNP [Primary Care Provider] - - Diet and Activity Activity: resume usual activities as tolerated - Stroke Contraindication Rehab Services Not Assessed: Symptoms Resolved
[2018-05-22] MEDS ORDERED: Insulin DETEMIR 100 UNIT/ML X5UNITS SQ SCH (21:00)
--- NOTE | 2018-05-24 09:44 | Electrocardiograph Report ---
[place] [id number] Test Date: 2018-05-21 Pat Name: Phuong Sullivan Department: EXAM10 Room: 2NE24 Gender: M Disability Benefits Specialist: : [id number] Requested By: Luz Maria Bennett Order Number: [id number] Reading MD: Lolita Sawyer Measurements Intervals [place] Rate: 64 P: 39 MO: 201 QRS: 70 QRSD: 111 T: 33 QT: 401 QTc: 414 Interpretive Statements Sinus rhythm Low voltage, precordial leads Baseline wander in lead(s) V3 Electronically Signed On 05-24-2018 9:43:05 EDT by Lolita Sawyer
== END 2018-05-22 16:41 | disposition home or self-care (01) ==
LOC: EMEROOARM 13:57 → 2NENU 13:57 → SUATTDRO 16:29 → 2NENU 17:20
PROVIDERS: ADMIT Family Medicine; ATTEND Internal Medicine

== ENCOUNTER 2020-08-10 03:25 | Inpatient (IN) ==
[2020-08-10 04:24] LABS: Basophils # 0.1 K/mcL (0.0-0.2); Basophils % 0.5 %; Eosinophils # 0.3 K/mcL (0.0-0.6); Eosinophils % 2.6 %; Hematocrit 35.3 % (37.5-50.1); Hemoglobin 11.1 g/dL (12.9-16.9); Immature Granulocytes % 0.3 % (0-4); Lymphocytes # 2.3 K/mcL (0.6-4.6); Lymphocytes % 21.4 %; Mean Corpuscular HGB Conc 31.4 g/dL (31.6-35.5); Mean Corpuscular Hemoglobin 28.5 pg (28.0-33.3); Mean Corpuscular Volume 90.5 fL (83.0-100.0); Mean Platelet Volume 11.4 fL (9.4-12.4); Monocytes # 1.4 K/mcL (0.0-1.3); Monocytes % 12.7 %; Neutrophils # 6.7 K/mcL (1.6-8.9); Platelet Count 170 K/mcL (140-400); Red Cell Distribution Width 16.1 % (11.5-14.5); Segmented Neutrophils % 62.5 %; White Blood Count 10.7 K/mcL (4.3-11.1)
[2020-08-10 04:43] LABS: Albumin 3.6 g/dL (3.5-5.7); Albumin/Globulin Ratio 1.2 (1.1-2.2); Bilirubin,Total 0.2 mg/dL (0.3-1.0); Calcium 8.8 mg/dL (8.6-10.3); Potassium 4.7 mEq/L (3.5-5.1); Total Protein 6.6 g/dL (6.4-8.9)
[2020-08-10 05:24] LABS: Bilirubin,Urine Negative (Negative); Blood,Urine Negative (Negative); Clarity,Urine Clear (Clear); Color,Urine Yellow (Yellow); Glucose,Urine (UA) Normal (Normal); Hyaline Casts,Urine Few per lpf (None Seen); Ketones,Urine Negative (Negative); Leukocyte Esterase,Urine Trace (Negative); Mucus,Urine Few per lpf (None-Few); Nitrite,Urine Negative (Negative); PH,Urine 5.5 pH Units (5.0-8.0); Protein,Urine 30 mg/dL (Neg-Trace); RBC,Urine 0-3 per hpf (0-3); Specific Gravity,Urine 1.015 (1.010-1.025); Urobilinogen,Urine Normal (Normal); WBC,Urine 0-3 per hpf (0-3)
[2020-08-10] MEDS ORDERED: Piperacillin/Tazobactam 3.375 GM in Water for inj. (sterile) 20 ML IVP ONE (05:36)
[2020-08-10] MEDS ORDERED: Naloxone 0.4 MG/ML INJ IVP PRN (06:12)
[2020-08-10] MEDS ORDERED: *HR* Dextrose 50 % in Water (Vial) 50 ML VIAL IVP PRN (06:13)
[2020-08-10] MEDS ORDERED: D5% in Water 1,000 ML IVC PRN (06:13)
[2020-08-10] MEDS ORDERED: Dextrose Gel 15 GM/37.5 ML TUBE PO PRN ×2 (06:13)
[2020-08-10] MEDS ORDERED: Morphine Sulfate 2 MG/ML SYRINGE IVP PRN (06:31)
[2020-08-10] MEDS ORDERED: *HR* FentaNYL (PF) 100 MCG/2 ML VIAL ONE (07:51)
[2020-08-10] MEDS ORDERED: Ondansetron 4 MG/2 ML VIAL ONE (07:51)
[2020-08-10] MEDS ORDERED: Lidocaine -MPF 2% 2 ML VIAL ONE (07:51)
[2020-08-10] MEDS ORDERED: Lidocaine -MPF 4% 5 ML AMPUL ONE (07:51)
[2020-08-10] MEDS ORDERED: Dexamethasone 4 MG/ML VIAL ONE (07:51)
[2020-08-10] MEDS ORDERED: *HR* Propofol 200 MG/20 ML VIAL IVP ONE (07:51)
[2020-08-10] MEDS ORDERED: *HR* Rocuronium Bromide 50 MG/5 ML VIAL ONE ×2 (07:51→11:00)
[2020-08-10] MEDS ORDERED: *HR* Midazolam HCl 2 MG/2 ML VIAL ONE (07:51)
[2020-08-10] MEDS ORDERED: *HR* OxyCODONE Immed Rel 5 MG TABLET PO PRN (10:02)
[2020-08-10] MEDS ORDERED: *HR* HYDROmorphone PF 0.5 MG/0.5 ML SYRINGE IVP PRN (10:02)
[2020-08-10] MEDS ORDERED: Ondansetron 4 MG/2 ML VIAL IVP PRN (10:02)
[2020-08-10] MEDS ORDERED: Acetaminophen IV 1,000 MG/100 ML BAG IVPB ONE (10:28)
[2020-08-10] MEDS: Insulin LISPRO 300 UNITS/3 ML VIAL SUBQ SCH ×2 (13:28→18:38)
[2020-08-10] MEDS: 0.9 % Sodium Chloride 1,000 ML IVC SCH (13:45)
[2020-08-10] MEDS: Piperacillin/Tazobactam 3.375 GM in 0.9 % Sodium Chloride Mini Bag 100 ML IVPB SCH ×2 (13:45→20:22)
[2020-08-10] MEDS: *HR* OxyCODONE/APAP 5/325 TABLET PO PRN (15:23)
[2020-08-10] MEDS ORDERED: *HR* Succinylcholine 200 MG/10 ML VIAL IVP ONE (16:18)
[2020-08-10] MEDS ORDERED: allopurinoL 100 MG TABLET PO PRN (17:00)
[2020-08-10] MEDS: Gabapentin 300 MG CAPSULE PO SCH ×2 (18:36→20:21)
[2020-08-10] MEDS: Ketorolac 15 MG/ML VIAL IVP SCH (18:37)
[2020-08-10] MEDS: Divalproex (24 HR) 500 MG TABLET PO SCH (20:20)
[2020-08-10] MEDS: cloNIDine HCL 0.1 MG TABLET PO SCH (20:21)
[2020-08-10] MEDS: carvediloL 25 MG TABLET PO SCH (20:21)
[2020-08-10] MEDS: ALPRAZolam 0.5 MG TABLET PO SCH (20:21)
[2020-08-10] MEDS: hydrALAZINE 25 MG TABLET PO SCH (20:21)
[2020-08-11] MEDS: Ketorolac 15 MG/ML VIAL IVP SCH ×2 (00:12→05:56)
[2020-08-11] MEDS: Piperacillin/Tazobactam 3.375 GM in 0.9 % Sodium Chloride Mini Bag 100 ML IVPB SCH ×3 (05:56→22:20)
[2020-08-11 06:48] LABS: Basophils % 0.1 %; Hematocrit 35.6 % (37.5-50.1); Hemoglobin 10.9 g/dL (12.9-16.9); Immature Granulocytes % 0.7 % (0-4); Lymphocytes % 7.6 %; Mean Corpuscular HGB Conc 30.6 g/dL (31.6-35.5); Mean Corpuscular Hemoglobin 28.5 pg (28.0-33.3); Mean Platelet Volume 11.2 fL (9.4-12.4); Monocytes # 1.4 K/mcL (0.0-1.3); Monocytes % 10.7 %; Neutrophils # 10.8 K/mcL (1.6-8.9); Platelet Count 158 K/mcL (140-400); Red Blood Count 3.83 M/mcL (4.19-5.50); Red Cell Distribution Width 16.1 % (11.5-14.5); Segmented Neutrophils % 80.9 %; White Blood Count 13.4 K/mcL (4.3-11.1)
[2020-08-11 07:09] LABS: Calcium 8.2 mg/dL (8.6-10.3); Magnesium 2.5 mg/dL (1.6-2.6); Phosphorous 3.6 mg/dL (2.7-4.5); Potassium 5.8 mEq/L (3.5-5.1)
[2020-08-11] MEDS ORDERED: Furosemide 40 MG TABLET PO SCH (09:00)
[2020-08-11] MEDS ORDERED: lisinopriL 20 MG TABLET PO SCH (09:00)
[2020-08-11] MEDS: Cholecalciferol (D-3) 1,000 UNIT (25MCG) TABLET PO SCH (09:18)
[2020-08-11] MEDS: hydrALAZINE 25 MG TABLET PO SCH ×3 (09:18→22:21)
[2020-08-11] MEDS: Insulin LISPRO 300 UNITS/3 ML VIAL SUBQ SCH ×3 (09:18→16:42)
[2020-08-11] MEDS: amLODIPine 5 MG TABLET PO SCH (09:18)
[2020-08-11] MEDS: BuPROPion SR (12 HR) 100 MG TABLET PO SCH (09:18)
[2020-08-11] MEDS: cloNIDine HCL 0.1 MG TABLET PO SCH ×2 (09:19→22:20)
[2020-08-11] MEDS: Aspirin 81 MG TAB.CHEW PO SCH (09:19)
[2020-08-11] MEDS: carvediloL 25 MG TABLET PO SCH ×2 (09:19→16:41)
[2020-08-11] MEDS: Gabapentin 300 MG CAPSULE PO SCH ×3 (09:19→22:20)
[2020-08-11] MEDS: Insulin DETEMIR 100 UNIT/ML X5UNITS SUBQ SCH (09:21)
[2020-08-11] MEDS: *HR* OxyCODONE/APAP 5/325 TABLET PO PRN (10:22)
[2020-08-11] MEDS: 0.9 % Sodium Chloride 1,000 ML IVC SCH (20:36)
[2020-08-11] MEDS ORDERED: Insulin LISPRO 300 UNITS/3 ML VIAL SUBQ SCH (21:00)
[2020-08-11] MEDS: *HR* Heparin 5,000 UNIT/ML VIAL SQ SCH (22:21)
[2020-08-11] MEDS: ALPRAZolam 0.5 MG TABLET PO SCH (22:21)
[2020-08-11] MEDS: Divalproex (24 HR) 500 MG TABLET PO SCH (22:21)
[2020-08-12] MEDS: *HR* OxyCODONE/APAP 5/325 TABLET PO PRN (03:15)
[2020-08-12 04:59] LABS: Basophils % 0.4 %; Eosinophils # 0.2 K/mcL (0.0-0.6); Hematocrit 34.8 % (37.5-50.1); Hemoglobin 10.6 g/dL (12.9-16.9); Immature Granulocytes % 0.8 % (0-4); Lymphocytes # 1.7 K/mcL (0.6-4.6); Lymphocytes % 15.9 %; Mean Corpuscular HGB Conc 30.5 g/dL (31.6-35.5); Mean Corpuscular Hemoglobin 28.6 pg (28.0-33.3); Mean Corpuscular Volume 94.1 fL (83.0-100.0); Mean Platelet Volume 11.3 fL (9.4-12.4); Monocytes # 1.2 K/mcL (0.0-1.3); Neutrophils # 7.4 K/mcL (1.6-8.9); Platelet Count 167 K/mcL (140-400); Red Cell Distribution Width 16.3 % (11.5-14.5); Segmented Neutrophils % 69.9 %; White Blood Count 10.6 K/mcL (4.3-11.1)
[2020-08-12 05:16] LABS: Calcium 8.5 mg/dL (8.6-10.3); Potassium 5.3 mEq/L (3.5-5.1)
[2020-08-12] MEDS: Piperacillin/Tazobactam 3.375 GM in 0.9 % Sodium Chloride Mini Bag 100 ML IVPB SCH (06:07)
[2020-08-12] MEDS: *HR* Heparin 5,000 UNIT/ML VIAL SQ SCH (06:08)
[2020-08-12 06:38] VITALS: BP 130/68
[2020-08-12] MEDS: hydrALAZINE 25 MG TABLET PO SCH (08:53)
[2020-08-12] MEDS: Cholecalciferol (D-3) 1,000 UNIT (25MCG) TABLET PO SCH (08:54)
[2020-08-12] MEDS: Gabapentin 300 MG CAPSULE PO SCH (08:54)
[2020-08-12] MEDS: amLODIPine 5 MG TABLET PO SCH (08:54)
[2020-08-12] MEDS: BuPROPion SR (12 HR) 100 MG TABLET PO SCH (08:54)
[2020-08-12] MEDS: carvediloL 25 MG TABLET PO SCH (08:54)
[2020-08-12] MEDS: cloNIDine HCL 0.1 MG TABLET PO SCH (08:54)
[2020-08-12] MEDS: Aspirin 81 MG TAB.CHEW PO SCH (08:54)
[2020-08-12] MEDS: Insulin LISPRO 300 UNITS/3 ML VIAL SUBQ SCH ×2 (08:58→13:03)
[2020-08-12] MEDS: Insulin DETEMIR 100 UNIT/ML X5UNITS SUBQ SCH (11:36)
== END 2020-08-12 15:06 | disposition home or self-care (01) | DRG 336 ==
LOC: 3ANU 03:25 → EMEROOARM 03:25 → SUATTDRO 06:14 → 3ANU 06:46 → SUATTDRO 08-11 15:32
PROVIDERS: ADMIT Student in an Organized Health Care Education/Training Program; ATTEND Internal Medicine

== ENCOUNTER 2021-10-04 07:52 | Inpatient (IN) ==
[2021-10-04 08:41] LABS: Basophils # 0.1 K/mcL (0.0-0.2); Basophils % 0.6 %; Eosinophils # 0.4 K/mcL (0.0-0.6); Eosinophils % 3.9 %; Hemoglobin 11.2 g/dL (12.9-16.9); Immature Granulocytes % 1.6 % (0-4); Lymphocytes # 1.5 K/mcL (0.6-4.6); Mean Corpuscular HGB Conc 32.9 g/dL (31.6-35.5); Mean Corpuscular Hemoglobin 29.9 pg (28.0-33.3); Mean Corpuscular Volume 90.7 fL (83.0-100.0); Mean Platelet Volume 11.1 fL (9.4-12.4); Monocytes % 10.3 %; Neutrophils # 6.3 K/mcL (1.6-8.9); Platelet Count 211 K/mcL (140-400); Red Blood Count 3.75 M/mcL (4.19-5.50); Red Cell Distribution Width 14.6 % (11.5-14.5); Segmented Neutrophils % 67.6 %; White Blood Count 9.4 K/mcL (4.3-11.1)
[2021-10-04 08:58] LABS: Alanine Aminotransferase 8 Units/L (7-52); Albumin 3.9 g/dL (3.5-5.7); Albumin/Globulin Ratio 1.2 (1.1-2.2); Alkaline Phosphatase 59 Units/L (34-104); Aspartate Amino Transferase 18 Units/L (13-39); BUN/Creatinine Ratio 10 (6-26); Bilirubin,Total 0.2 mg/dL (0.3-1.0); Blood Urea Nitrogen 34 mg/dL (6-20); Calcium 10.2 mg/dL (8.6-10.3); Carbon Dioxide 29 mEq/L (23-29); Chloride 91 mEq/L (98-107); Globulin 3.3 g/dL (2.4-3.5); Glucose 119 mg/dL (70-105); Magnesium 1.8 mg/dL (1.6-2.6); Osmolality,Calculated 273 (280-300); Potassium 3.8 mEq/L (3.5-5.1); Sodium 127 mEq/L (136-145); Total Protein 7.2 g/dL (6.4-8.9); eGFR For African Americans 24 (> 60); eGFR For Non-African Americans 20 (> 60)
[2021-10-04 08:59] LABS: Troponin I < 0.03 ng/mL (< 0.04)
[2021-10-04] MEDS ORDERED: 0.9 % Sodium Chloride 1,000 ML IVC ONE (09:01)
[2021-10-04 09:14] LABS: Influenza A PCR Negative (Negative); Influenza B PCR Negative (Negative); Resp. Syncytial Virus PCR Negative (Negative)
[2021-10-04 09:15] LABS: SARS-CoV-2 by PCR (In House) Negative (Negative)
[2021-10-04] MEDS ORDERED: Naloxone 0.4 MG/ML INJ IVP PRN (09:26)
[2021-10-04] MEDS ORDERED: Ondansetron 4 MG/2 ML VIAL IVP PRN (09:26)
[2021-10-04] MEDS ORDERED: *HR* Dextrose 50 % in Water (Syg) 50 ML SYRINGE IVP PRN (09:41)
[2021-10-04] MEDS ORDERED: Dextrose Gel 15 GM/37.5 ML TUBE PO PRN ×2 (09:41)
[2021-10-04] MEDS ORDERED: D5% in Water 1,000 ML IVC PRN (09:41)
[2021-10-04] MEDS ORDERED: Ipratropium/Albuterol Neb 3 ML IH PRN (09:50)
[2021-10-04] MEDS ORDERED: Fluticasone Propionate Nasal 50 MCG/SPRAY BOTTLE NS PRN (10:00)
[2021-10-04] MEDS ORDERED: tiZANidine 4 MG TABLET PO PRN (10:12)
[2021-10-04] MEDS: 0.9 % Sodium Chloride 1,000 ML IVC SCH (11:30)
[2021-10-04] MEDS: Insulin LISPRO 300 UNITS/3 ML VIAL SUBQ SCH ×2 (12:27→17:21)
[2021-10-04] MEDS: *HR* Heparin 5,000 UNIT/ML VIAL SQ SCH ×2 (13:14→21:11)
[2021-10-04 13:53] LABS: VBG HCO3 26 mEq/L (21-27); VBG PCO2 47 mmHg (41-51); VBG PH 7.36 pH Units (7.32-7.42); VBG PO2 108 mmHg (25-50)
[2021-10-04 14:17] LABS: BUN/Creatinine Ratio 11 (6-26); Blood Urea Nitrogen 34 mg/dL (6-20); Calcium 9.6 mg/dL (8.6-10.3); Carbon Dioxide 28 mEq/L (23-29); Chloride 93 mEq/L (98-107); Glucose 129 mg/dL (70-105); Osmolality,Calculated 273 (280-300); Potassium 4.1 mEq/L (3.5-5.1); Sodium 127 mEq/L (136-145); Troponin I < 0.03 ng/mL (< 0.04); eGFR For African Americans 25 (> 60); eGFR For Non-African Americans 21 (> 60)
[2021-10-04 14:46] LABS: Adenovirus F 40/41 PCR Not detected (Not detect); Astrovirus PCR Not detected (Not detect); C.difficile Toxin A/B Gene PCR Not detected (Not detect); Campylobacter by PCR Not detected (Not detect); Cryptosporidium by PCR Not detected (Not detect); Cyclospora cayetanensis PCR Not detected (Not detect); E. coli O157 by PCR Not detected (Not detect); Entamoeba histolytica PCR Not detected (Not detect); Enteroaggregative E.coli(EAEC) Not detected (Not detect); Enteropathogenic E.coli(EPEC) Not detected (Not detect); Enterotoxigenic E.coli (ETEC) Not detected (Not detect); Giardia lamblia PCR Not detected (Not detect); Norovirus GI/GII PCR DETECTED (Not detect); Plesiomonas shigelloides PCR Not detected (Not detect); Rotavirus A PCR Not detected (Not detect); Salmonella PCR Not detected (Not detect); Sapovirus PCR Not detected (Not detect); Shig/EnteroinvasiveE coli EIEC Not detected (Not detect); Shigalike tox-prod E coli STEC Not detected (Not detect); Vibrio PCR Not detected (Not detect); Vibrio cholerae PCR Not detected (Not detect); Yersinia enterocolitica PCR Not detected (Not detect)
[2021-10-04] MEDS: hydrALAZINE 25 MG TABLET PO SCH ×2 (15:28→19:40)
[2021-10-04 16:08] LABS: Bilirubin,Urine Negative (Negative); Blood,Urine Negative (Negative); Clarity,Urine Clear (Clear); Color,Urine Light-Yellow (Yellow); Glucose,Urine (UA) Normal (Normal); Ketones,Urine Negative (Negative); Leukocyte Esterase,Urine Negative (Negative); Mucus,Urine Few per lpf (None-Few); Nitrite,Urine Negative (Negative); Protein,Urine 50 mg/dL (Neg-Trace); Specific Gravity,Urine 1.011 (1.010-1.025); Urobilinogen,Urine Normal (Normal); WBC,Urine 0-3 per hpf (0-3)
[2021-10-04] MEDS: carvediloL 25 MG TABLET PO SCH (17:25)
[2021-10-04] MEDS: ALPRAZolam 0.5 MG TABLET PO SCH (19:40)
[2021-10-04] MEDS: Divalproex (24 HR) 500 MG TABLET PO SCH (19:40)
[2021-10-04 21:01] LABS: Calcium 8.9 mg/dL (8.6-10.3); Potassium 3.7 mEq/L (3.5-5.1)
[2021-10-04] MEDS: Acetaminophen 325 MG TABLET PO PRN (21:54)
[2021-10-05 01:12] LABS: Basophils % 0.6 %; Eosinophils # 0.4 K/mcL (0.0-0.6); Eosinophils % 5.1 %; Hematocrit 30.3 % (37.5-50.1); Lymphocytes # 1.8 K/mcL (0.6-4.6); Lymphocytes % 26.2 %; Mean Corpuscular Hemoglobin 29.8 pg (28.0-33.3); Mean Corpuscular Volume 90.2 fL (83.0-100.0); Mean Platelet Volume 11.5 fL (9.4-12.4); Monocytes # 0.7 K/mcL (0.0-1.3); Monocytes % 10.3 %; Platelet Count 188 K/mcL (140-400); Red Blood Count 3.36 M/mcL (4.19-5.50); Red Cell Distribution Width 14.7 % (11.5-14.5); Segmented Neutrophils % 56.8 %
[2021-10-05 01:24] LABS: Prothrombin Time 11.1 Seconds (9.4-12.1)
[2021-10-05 01:30] LABS: Calcium 8.8 mg/dL (8.6-10.3); Magnesium 1.8 mg/dL (1.6-2.6); Phosphorous 3.6 mg/dL (2.7-4.5); Potassium 3.6 mEq/L (3.5-5.1)
[2021-10-05] MEDS: 0.9 % Sodium Chloride 1,000 ML IVC SCH (03:28)
[2021-10-05] MEDS ORDERED: Melatonin 3 MG TABLET PO STA (03:52)
[2021-10-05] MEDS: *HR* Heparin 5,000 UNIT/ML VIAL SQ SCH ×3 (04:02→20:12)
[2021-10-05] MEDS ORDERED: Insulin DETEMIR 100 UNIT/ML X5UNITS SUBQ SCH (09:00)
[2021-10-05] MEDS: Insulin LISPRO 300 UNITS/3 ML VIAL SUBQ SCH ×3 (10:05→16:03)
[2021-10-05] MEDS: Cholecalciferol (D-3) 1,000 UNIT (25MCG) TABLET PO SCH (10:12)
[2021-10-05] MEDS: BuPROPion SR (12 HR) 100 MG TABLET PO SCH (10:13)
[2021-10-05] MEDS: carvediloL 25 MG TABLET PO SCH ×2 (10:13→16:01)
[2021-10-05] MEDS: Aspirin 81 MG TAB.CHEW PO SCH (10:13)
[2021-10-05] MEDS: amLODIPine 5 MG TABLET PO SCH (10:13)
[2021-10-05] MEDS: Isosorbide MONOnitrate (24 HR) 30 MG TAB.ER.24H PO SCH (10:13)
[2021-10-05] MEDS: hydrALAZINE 25 MG TABLET PO SCH ×3 (10:13→20:12)
[2021-10-05] MEDS: 0.9 % Sodium Chloride w KCl 40 MEQ/1,000 ML MLS IVC SCH (14:41)
[2021-10-05] MEDS: Acetaminophen 325 MG TABLET PO PRN (16:01)
[2021-10-05] MEDS: Divalproex (24 HR) 500 MG TABLET PO SCH (20:11)
[2021-10-05] MEDS: ALPRAZolam 0.5 MG TABLET PO SCH (20:12)
[2021-10-06] MEDS ORDERED: Oxymetazoline Nasal SPRAY BOTTLE 15ML NS PRN (00:34)
[2021-10-06] MEDS: 0.9 % Sodium Chloride w KCl 40 MEQ/1,000 ML MLS IVC SCH (02:03)
[2021-10-06] MEDS: traZODone 50 MG TABLET PO PRN (03:39)
[2021-10-06] MEDS: *HR* Heparin 5,000 UNIT/ML VIAL SQ SCH ×3 (05:15→21:08)
[2021-10-06 05:31] LABS: Basophils # 0.1 K/mcL (0.0-0.2); Basophils % 0.8 %; Eosinophils # 0.4 K/mcL (0.0-0.6); Eosinophils % 4.9 %; Hematocrit 29.7 % (37.5-50.1); Hemoglobin 9.6 g/dL (12.9-16.9); Immature Granulocytes % 1.5 % (0-4); Lymphocytes # 2.3 K/mcL (0.6-4.6); Lymphocytes % 31.2 %; Mean Corpuscular HGB Conc 32.3 g/dL (31.6-35.5); Mean Corpuscular Hemoglobin 29.7 pg (28.0-33.3); Mean Platelet Volume 11.4 fL (9.4-12.4); Monocytes # 0.8 K/mcL (0.0-1.3); Neutrophils # 3.7 K/mcL (1.6-8.9); Platelet Count 208 K/mcL (140-400); Red Blood Count 3.23 M/mcL (4.19-5.50); Red Cell Distribution Width 14.7 % (11.5-14.5); Segmented Neutrophils % 50.6 %; White Blood Count 7.4 K/mcL (4.3-11.1)
[2021-10-06 05:42] LABS: Calcium 8.8 mg/dL (8.6-10.3); Potassium 4.2 mEq/L (3.5-5.1)
[2021-10-06] MEDS: 0.9 % Sodium Chloride 1,000 ML IVC SCH ×4 (05:57→22:25)
[2021-10-06] MEDS: Isosorbide MONOnitrate (24 HR) 30 MG TAB.ER.24H PO SCH (08:59)
[2021-10-06] MEDS: hydrALAZINE 25 MG TABLET PO SCH ×3 (08:59→21:08)
[2021-10-06] MEDS: Aspirin 81 MG TAB.CHEW PO SCH (08:59)
[2021-10-06] MEDS: Cholecalciferol (D-3) 1,000 UNIT (25MCG) TABLET PO SCH (08:59)
[2021-10-06] MEDS: BuPROPion SR (12 HR) 100 MG TABLET PO SCH (09:00)
[2021-10-06] MEDS: amLODIPine 5 MG TABLET PO SCH (09:00)
[2021-10-06] MEDS: Insulin DETEMIR 100 UNIT/ML X5UNITS SUBQ SCH (09:00)
[2021-10-06] MEDS: carvediloL 25 MG TABLET PO SCH ×2 (09:00→17:15)
[2021-10-06] MEDS: Insulin LISPRO 300 UNITS/3 ML VIAL SUBQ SCH ×3 (09:03→16:44)
[2021-10-06] MEDS: Acetaminophen 325 MG TABLET PO PRN ×2 (09:08→23:58)
[2021-10-06] MEDS: ALPRAZolam 0.5 MG TABLET PO SCH (21:07)
[2021-10-06] MEDS: Divalproex (24 HR) 500 MG TABLET PO SCH (21:08)
[2021-10-07] MEDS: traZODone 50 MG TABLET PO PRN (00:04)
[2021-10-07 01:55] LABS: Hematocrit 30.9 % (37.5-50.1); Mean Corpuscular HGB Conc 32.4 g/dL (31.6-35.5); Mean Corpuscular Hemoglobin 29.7 pg (28.0-33.3); Mean Corpuscular Volume 91.7 fL (83.0-100.0); Mean Platelet Volume 10.9 fL (9.4-12.4); Platelet Count 191 K/mcL (140-400); Red Blood Count 3.37 M/mcL (4.19-5.50); Red Cell Distribution Width 14.8 % (11.5-14.5); White Blood Count 7.5 K/mcL (4.3-11.1)
[2021-10-07 02:11] LABS: Calcium 9.1 mg/dL (8.6-10.3); Magnesium 1.7 mg/dL (1.6-2.6); Potassium 4.5 mEq/L (3.5-5.1)
[2021-10-07] MEDS: *HR* Heparin 5,000 UNIT/ML VIAL SQ SCH (05:17)
[2021-10-07] MEDS: 0.9 % Sodium Chloride 1,000 ML IVC SCH ×2 (05:59→09:38)
[2021-10-07] MEDS: Insulin LISPRO 300 UNITS/3 ML VIAL SUBQ SCH ×2 (07:39→12:16)
[2021-10-07] MEDS: carvediloL 25 MG TABLET PO SCH (09:19)
[2021-10-07] MEDS: Cholecalciferol (D-3) 1,000 UNIT (25MCG) TABLET PO SCH (09:19)
[2021-10-07] MEDS: Isosorbide MONOnitrate (24 HR) 30 MG TAB.ER.24H PO SCH (09:19)
[2021-10-07] MEDS: Aspirin 81 MG TAB.CHEW PO SCH (09:19)
[2021-10-07] MEDS: amLODIPine 5 MG TABLET PO SCH (09:19)
[2021-10-07] MEDS: hydrALAZINE 25 MG TABLET PO SCH (09:19)
[2021-10-07] MEDS: Insulin DETEMIR 100 UNIT/ML X5UNITS SUBQ SCH (09:24)
[2021-10-07] MEDS: BuPROPion SR (12 HR) 100 MG TABLET PO SCH (09:25)
[2021-10-07 12:13] VITALS: BP 152/83; PULSE 71; TEMP 98.2; O2SAT 95
== END 2021-10-07 13:04 | disposition home health service (06) | DRG 392 ==
LOC: 2ANU 07:52 → EMEROOARM 07:52 → SUATTDRO 09:36 → 2ANU 10:38
PROVIDERS: ADMIT Student in an Organized Health Care Education/Training Program; ATTEND Internal Medicine